=== PATIENT | female | born 1955 | race Caucasian/White ===

== ENCOUNTER 2019-07-10 12:26 | Inpatient (IN) ==
[2019-07-10] MEDS ORDERED: MORPHINE SULFATE 4 MG/ML SYRG IV ONE ×2 (12:32→14:21)
[2019-07-10] MEDS ORDERED: ONDANSETRON HCL/PF 2 MG/ML VIAL ONE (12:47)
[2019-07-10] MEDS ORDERED: ONDANSETRON HCL/PF 2 MG/ML VIAL IV ONE (12:53)
[2019-07-10] MEDS ORDERED: LORazepam 2 MG/ML DISP.SYRIN IV ONE ×2 (13:34→14:21)
[2019-07-10 13:55] LABS: Hematocrit 44.2 % (37.0-47.0); Hemoglobin 14.2 gm/dL (12.5-16.0); Mean Cell Volume 81.4 fl (78-100); Mean Corpuscular Hemoglobin 26.2 pg (27-31); Mean Corpuscular Hgb Conc 32.1 g/dl (32-36); Mean Platelet Volume 10.2 fl (8-12.5); Neutrophil # 13.8 K/mm3 (1.3-6.0); Neutrophil % 87.1 % (42-75.0); Platelet Count 264 K/mm3 (150-450); Red Blood Count 5.43 M/mm3 (4.2-5.4); Red Cell Distribution Width 14.1 % (11.5-14.0); White Blood Count 15.9 K/mm3 (4.0-10.5)
[2019-07-10 14:09] LABS: Urine Bilirubin Negative (NEGATIVE); Urine Blood Negative /ul (NEGATIVE); Urine Ketone 5 mg/dL (NEGATIVE); Urine Nitrite Negative (NEGATIVE); Urine Protein Negative (NEGATIVE); Urine Specific Gravity <=1.005 SP.GR. (1.005-1.010); Urine Urobilinogen Normal (NORMAL); Urine pH 5.5 pH (5.0-7.0)
[2019-07-10 14:10] LABS: Albumin * 3.8 gm/dl (3.4-5.0); Anion Gap 12.3 mmol/L (6.8-13.8); BUN/Creatinine Ratio 14.5 (9.0-21.6); Bilirubin, Total 0.4 mg/dL (0.0-1.1); Ca. Corrected For Albumin 8.9 mg/dL (8.4-10.2); Calcium * 9.1 mg/dL (7.9-10.9); Carbon Dioxide 29.3 mmol/L (24-32.6); Potassium 3.6 mmol/L (3.4-4.6); Total Protein 7.9 gm/dL (6.2-8.2)
--- NOTE | 2019-07-10 14:12 | ERNOTE ---
Lower Extremity HPI - Narrative Date of Service: 07/10/19 - General Lower Extremities Pain: hip: left Time Seen by Provider: 07/10/19 12:27 Source: patient Exam Limitations: no limitations - Immun/Allergies/Home Medications Immunizations: IMMUNIZATION HX Immunizations Up to Date No History of Influenza Vaccine Yes Hx Pneumococcal Vaccination No Allergies/Adverse Reactions: Allergies Allergy/AdvReac Type Severity Reaction Status Date / Time No Known Allergies Allergy Verified 07/10/19 12:51 Home Medications: HOME MEDICATIONS Calcium Carb/Vitamin D3/Vit K1 [Calcium + D Soft Chewable Tab] 1 tab PO BID 03/26/14 [Last Taken Unknown] Multivitamins [Multivitamin Dat] 1 cap PO DAILY 03/26/14 [Last Taken Unknown] [place]-3 Fatty Acids/Fish Oil [Fish Oil 1,000 mg Capsule] 3 tab PO DAILY 03/26/14 [Last Taken Unknown] amlodipine 5 mg tablet See Rx Instructions .ROUTE .COMPLEX #90 tablet 01/23/19 [Last Taken Unknown] atorvastatin 20 mg tablet See Rx Instructions .ROUTE .COMPLEX #90 tablet 01/23/19 [Last Taken Unknown] hydrochlorothiazide 25 mg tablet See Rx Instructions .ROUTE .COMPLEX #90 tablet 01/23/19 [Last Taken Unknown] omeprazole 20 mg capsule,delayed release See Rx Instructions .ROUTE .COMPLEX #90 capsule 01/23/19 [Last Taken Unknown] sertraline 100 mg tablet 100 mg PO DAILY #30 tab 01/25/19 [Last Taken Unknown] levothyroxine 50 mcg tablet 50 mcg PO DAILY #30 tab 04/20/19 [Last Taken Unknown] metformin 500 mg tablet,extended release 24 hr 500 mg PO BID #60 tab 04/20/19 [Last Taken Unknown] - History of Present Illness Narrative: Patient presents to the ED via EMS for left hip pain. Patient had thrown laundry downstairs then slipped on water spilled on [facility] floor by her dog. This was on linoleum. She hit her head on the table and had immediate severe pain left hip. She was unable to get up and EMS called. Denies neck pain, no acute N/T/W. Pain severe with any kind of movement, Occurred: just prior to arrival Location of Incident: home Method of Injury: Reports: fell, direct blow Reason for Fall: Reports: slipped Loss of Consciousness: Reports: no loss of consciousness Modifying Factors - (Improves): Reports: rest Modifying Factors - (Worsens): Reports: movement Associated Symptoms: Denies: headache, weakness, bowel/bladder problems Subsequent Symptoms: Denies: sensory loss, numbness, motor loss Prior Treament: Denies: recently seen, similar symptoms before Review of Systems - Review of Systems Constitutional: Absent: fever EYE: Present: no symptoms reported ENT: Present: no symptoms reported Respiratory: Absent: shortness of breath Cardiology: Absent: chest pain Gastrointestinal/Abdominal: Absent: abdominal pain Genitourinary: Absent: dysuria All Other Systems: All systems neg except as marked Medical History (Last Reviewed 07/10/19 @ 14:08 by Bill Logan MD) Osteopenia (Chronic) Onset Date: Unknown Hypertension (Chronic) Onset Date: Unknown Hyperlipidemia (Chronic) Onset Date: Unknown Depression (Chronic) Onset Date: Unknown Anxiety disorder (Chronic) Onset Date: Unknown Surgical History: Surgical History (Last Reviewed 07/10/19 @ 14:08 by Bill Logan MD) History of wisdom tooth extraction Onset Date: ~2004 History of colonoscopy Onset Date: 07/13/11 Bagan=tortous colon. followed with barium enema. Negative recheck 5-10 yrs History of esophagogastroduodenoscopy (EGD) Onset Date: 04/02/14 History of reduction mammoplasty Onset Date: ~2011 History of shoulder surgery Onset Date: 04/18/16 Family History: Family History (Last Reviewed 07/10/19 @ 14:08 by Bill Logan MD) Father , age 79 Dementia CHF (congestive heart failure) Cancer lung Mother Hypertension Social History: (Last Reviewed 07/10/19 @ 14:08 by Bill Logan MD) Social History: Marital status: lives independently: Yes number of children: 2 Service: No Tobacco: Smoking Status: Former smoker Alcohol: alcohol intake: current alcohol intake frequency: a few times a month Substance Use: substance use type: does not use Dietary Habits: caffeine: Yes Physical Exam - Physical Exam General Appearance: Present: alert, no apparent distress, other - seveer pain with any movement left hip Head Exam: Present: normal inspection, no evidence of injury Eye Exam: Normal inspection: bilateral, PERRL: bilateral Ears, Nose, Throat: Present: normal ENT inspection Neck: Present: normal inspection, other - there is no C-spine tenderness , no neck pain, no suggestion of fracture Respiratory: Present: no respiratory distress, normal breath sounds, no accessory muscle use, lungs clear Cardiovascular/Chest: Present: regular rate, rhythm, normal peripheral pulses Gastrointestinal/Abdominal: Present: normal bowel sounds, nontender, soft Back Exam: Present: no vertebral tenderness Extremity Exam: Present: other - clinical left hip fracture Neurological Exam: Present: alert, no motor/sensory deficits, other - pain limits exam, no acute neuro deficits noted however Skin Exam: Present: normal color, warm/dry, other - no evidence of open fracture nopted Progress - Results and Orders Patient's Lab Results:: I have reviewed the patient's lab results. - Vital Signs Patient's Vital Signs:: I have reviewed the patient's vital signs. Vital Signs: Vital Signs 07/10/19 12:26 Temperature 36 C Pulse Rate 77 Respiratory Rate 20 Blood Pressure 164/68 H O2 Sat by Pulse Oximetry 97 - EKG EKG #1 EKG: NSR EKG read: Interp. by me EKG Comments: NSR rate 85. non-speciic ST/T wave changes, no STEMI noted. - X-Ray X-Ray #1 X-Ray: chest Interpretation: Interp. by me X-ray Comments: I reviewed official radiology report X-Ray #2 X-Ray: femur Interpretation: Interp. by me X-ray Comments: I reviewed images and official radiology report X-Ray #3 X-Ray: hip Interpretation: Interp. by me X-ray Comments: I reviewed images as well as offical radiology report - CT/Ultrasound CT/Ultrasound Narrative: I reviewed official radioology report for HCT - Progress/Reassessment Chief Complaint: Hip Pain/Injury Progress Note-Subjective: 07/10/19 14:[address] Bates to admit. Dr Suri Escobedo and consulted. Patient understands. Departure Clinical Impression: Fall, Hip fracture, Head injury - Departure Disposition: Still a patient Condition: Fair Referrals: Betty Gentile MD [Primary Care Provider] -
[2019-07-10 14:20] LABS: Urine Appearance Clear (CLEAR); Urine Bacteria 1+; Urine Color Pale Yellow; Urine RBC None Seen /hpf (0-5); Urine WBC 0-5 /hpf (0-5)
--- NOTE | 2019-07-10 15:45 | HP ---
Chief Complaint - Chief Complaint Date of Service: 07/10/19 Time of Service: 15:37 Chief Complaint: Left hip fractue History of Present Illness: 63 y/o F with PMHX of Osteopenia, NIDDM Type II, Essential Hypertension, Hyperlipidemia, Hypothyroidism, Major Depressive Disorder and Generalized Anxiety Disorder presents to the ER after a fall at home at 09:30 am. Patient was carrying laundry and slipped on some water that had spilled onto the floor landing on her left hip and back. Patient did not lose conciousness. Patient dragged herself to the kitchen and was able to reach her laptop and posted on FB for help because she could not reach her phone. On arrival to ER, BP is elevated most likely secondary to pain, remaining VSS. Labs reviewed and significant for Leukocytosis most likely reactive, hyperglycemia, and glucosuria. Cardiac panel unremarkable. EKG and CXR largely unremarkable. CT head ruled out acute bleed. X-Ray of left Femur and Hip/Pelvis demonstrated impacted and angulated left tronchanteric hip fracture. Received Mo rphine and Lorazepam in the ER. On arrival to the floor patient is complaining of left hip pain, radiating down her leg, described as sharp and stabbing, rated 10/10 associated with muscle spasms. No sensory deficits. Discussed management of correa traction versus PO muscle relaxant for muscle spasms, pain control with morphine, NPO at midnight and start fluids at midnight. Discussed the importance of controlling her glucose levels post-op and advised she will be on insulin according to sliding scale. Patient voiced understanding. Medical History (Last Reviewed 07/10/19 @ 14:08 by Bill Logan MD) Osteopenia (Chronic) Onset Date: Unknown Hypertension (Chronic) Onset Date: Unknown Hyperlipidemia (Chronic) Onset Date: Unknown Depression (Chronic) Onset Date: Unknown Anxiety disorder (Chronic) Onset Date: Unknown Surgical History: Surgical History (Last Reviewed 07/10/19 @ 14:08 by Bill Logan MD) History of wisdom tooth extraction Onset Date: ~2004 History of colonoscopy Onset Date: 07/13/11 Bagan=tortous colon. followed with barium enema. Negative recheck 5-10 yrs History of esophagogastroduodenoscopy (EGD) Onset Date: 04/02/14 History of reduction mammoplasty Onset Date: ~2011 History of shoulder surgery Onset Date: 04/18/16 Family History: Family History (Last Reviewed 07/10/19 @ 14:08 by Bill Logan MD) Father , age 79 Dementia CHF (congestive heart failure) Cancer lung Mother Hypertension Social History: (Last Reviewed 07/10/19 @ 14:08 by Bill Logan MD) Social History: Marital status: lives independently: Yes number of children: 2 Service: No Tobacco: Smoking Status: Former smoker Alcohol: alcohol intake: current alcohol intake frequency: a few times a month Substance Use: substance use type: does not use Dietary Habits: caffeine: Yes Review Of Systems (GEN) - Review of Systems Generalized/Overall Review: Present: Weakness - left le Respiratory: Absent: Cough, Shortness of Breath, Orthopnea Cardiac: Absent: Chest Pain, Edema, Palpitations Abdominal: Present: Nausea. Absent: Vomiting, Abdominal Pain Genitourinary: Absent: Burning, Itching, Urgency Musculoskeletal: Present: Joint Pain - left hip. Absent: Back Pain, Joint Swelling, Muscle Pain Neurological: Present: Anxiety, Weakness - left leg Skin: Absent: Dryness, Lesions, Bruising Immunizations: IMMUNIZATION HX Immunizations Up to Date No History of Influenza Vaccine Yes Hx Pneumococcal Vaccination No Allergies/Adverse Reactions: Allergies Allergy/AdvReac Type Severity Reaction Status Date / Time No Known Allergies Allergy Verified 07/10/19 12:51 Home Medications: HOME MEDICATIONS Calcium Carb/Vitamin D3/Vit K1 [Calcium + D Soft Chewable Tab] 1 tab PO BID 03/26/14 [Last Taken Unknown] Multivitamins [Multivitamin Dat] 1 cap PO DAILY 03/26/14 [Last Taken Unknown] [place]-3 Fatty Acids/Fish Oil [Fish Oil 1,000 mg Capsule] 3 tab PO DAILY 03/26/14 [Last Taken Unknown] amlodipine 5 mg tablet See Rx Instructions .ROUTE .COMPLEX #90 tablet 01/23/19 [Last Taken Unknown] atorvastatin 20 mg tablet See Rx Instructions .ROUTE .COMPLEX #90 tablet 01/23/19 [Last Taken Unknown] hydrochlorothiazide 25 mg tablet See Rx Instructions .ROUTE .COMPLEX #90 tablet 01/23/19 [Last Taken Unknown] omeprazole 20 mg capsule,delayed release See Rx Instructions .ROUTE .COMPLEX #90 capsule 01/23/19 [Last Taken Unknown] sertraline 100 mg tablet 100 mg PO DAILY #30 tab 01/25/19 [Last Taken Unknown] levothyroxine 50 mcg tablet 50 mcg PO DAILY #30 tab 04/20/19 [Last Taken Unknown] metformin 500 mg tablet,extended release 24 hr 500 mg PO BID #60 tab 04/20/19 [Last Taken Unknown] Exam - Exam Vital Signs: Vital Signs - Last Taken Temp 36 C 07/10/19 12:26 Pulse 81 07/10/19 14:53 Resp 13 07/10/19 14:53 BP 116/74 07/10/19 14:53 Pulse Ox 95 07/10/19 14:53 Constitutional: Present: Alert, Oriented x3, Cooperative, Acute distress ENT Exam: Present: hearing grossly normal Eye Exam: bilateral eye: normal inspection, EOMI Neck: Present: non-tender, full range of motion, supple, normal inspection Respiratory: Present: chest non-tender, lungs clear, normal breath sounds Cardiovascular/Chest: Present: normal peripheral pulses, regular rate, rhythm, no chest tenderness, no edema, no gallop, no JVD, no murmur Peripheral Pulses: dorsalis-pedis (R): 2+, dorsalis-pedis (L): 2+ Abdomen: Present: Normal bowel sounds, soft, nontender Extremity: Present: no pedal edema, no calf tenderness, leg cramps - left hip, leg pain - left hip. Absent: pedal edema, slow capillary refill Skin Exam: Present: normal color, warm/dry Neurologic: Present: alert, oriented x 3, motor weakness - left leg. Absent: sensory deficit Appearance: Present: appropriate appearance Eye contact: Present: cooperative Thoughts: Present: normal mood /affect Diagnostic Studies: Abnormal Lab Results 07/10/19 07/10/19 07/10/19 Range/Units 13:49 13:49 14:05 WBC 15.9 H (4.0-10.5) K/mm3 RBC 5.43 H (4.2-5.4) M/mm3 MCH 26.2 L (27-31) pg RDW 14.1 H (11.5-14.0) % Immature Gran % (Auto) 0.60 H (0.001-0.429) % Immature Gran # (Auto) 0.10 H (0.000-0.0310) K/mm3 Neutrophils % 87.1 H (42-75.0) % Lymphocytes % 7.9 L (20-51) % Neutrophils # 13.8 H (1.3-6.0) K/mm3 Lymphocytes # 1.26 L (1.5-3.5) k/mm3 Random Glucose 413 H (70-110) mg/dL Urine Glucose (UA) >=1000 H (NEGATIVE) mg/dL Urine Bacteria 1+ H (NONE) Laboratory Results WBC 15.9 K/mm3 (4.0-10.5) H 07/10/19 13:49 RBC 5.43 M/mm3 (4.2-5.4) H 07/10/19 13:49 Hgb 14.2 gm/dL (12.5-16.0) 07/10/19 13:49 Hct 44.2 % (37.0-47.0) 07/10/19 13:49 MCV 81.4 fl (78-100) 07/10/19 13:49 MCH 26.2 pg (27-31) L 07/10/19 13:49 MCHC 32.1 g/dl (32-36) 07/10/19 13:49 RDW 14.1 % (11.5-14.0) H 07/10/19 13:49 Plt Count 264 K/mm3 (150-450) 07/10/19 13:49 MPV 10.2 fl (8-12.5) 07/10/19 13:49 Immature Gran % (Auto) 0.60 % (0.001-0.429) H 07/10/19 13:49 Immature Gran # (Auto) 0.10 K/mm3 (0.000-0.0310) H 07/10/19 13:49 Neutrophils % 87.1 % (42-75.0) H 07/10/19 13:49 Lymphocytes % 7.9 % (20-51) L 07/10/19 13:49 Monocytes % 4.0 % (0.0-9) 07/10/19 13:49 Eosinophils % 0.1 % (0.0-3.0) 07/10/19 13:49 Basophils % 0.3 % (0.0-1.0) 07/10/19 13:49 Nucleated RBC % 0.0 k/mm3 (0-1) 07/10/19 13:49 Neutrophils # 13.8 K/mm3 (1.3-6.0) H 07/10/19 13:49 Lymphocytes # 1.26 k/mm3 (1.5-3.5) L 07/10/19 13:49 Monocytes # 0.6 k/mm3 (0.0-1.0) 07/10/19 13:49 Eosinophils # 0.0 k/mm3 (0.0-0.7) 07/10/19 13:49 Absolute Basophils 0.0 k/mm3 (0.0-0.1) 07/10/19 13:49 Sodium 135 mmol/L (132-142) 07/10/19 13:49 Plasma Sodium 140 mmol/L (130-142) 07/10/19 13:49 Potassium 3.6 mmol/L (3.4-4.6) 07/10/19 13:49 Chloride 97 mmol/L (97-106) 07/10/19 13:49 Carbon Dioxide 29.3 mmol/L (24-32.6) 07/10/19 13:49 Anion Gap 12.3 mmol/L (6.8-13.8) 07/10/19 13:49 BUN 10 mg/dL (3-23) 07/10/19 13:49 Creatinine 0.69 mg/dL (0.4-1.4) 07/10/19 13:49 Est GFR (Non-Af Amer) 91 mL/min (60-130) 07/10/19 13:49 BUN/Creatinine Ratio 14.5 (9.0-21.6) 07/10/19 13:49 Random Glucose 413 mg/dL (70-110) H 07/10/19 13:49 Calcium 9.1 mg/dL (7.9-10.9) 07/10/19 13:49 Calcium Adj for Albumin 8.9 mg/dL (8.4-10.2) 07/10/19 13:49 Total Bilirubin 0.4 mg/dL (0.0-1.1) 07/10/19 13:49 AST 43 U/L (0-48) 07/10/19 13:49 ALT 58 U/L (19-67) 07/10/19 13:49 Alkaline Phosphatase 109 U/L (50-170) 07/10/19 13:49 Troponin I Less than 0.017 ng/mL (0.00-0.10) 07/10/19 13:45 Total Protein 7.9 gm/dL (6.2-8.2) 07/10/19 13:49 Albumin 3.8 gm/dl (3.4-5.0) 07/10/19 13:49 Urine Color Pale yellow 07/10/19 14:05 Urine Appearance Clear (CLEAR) 07/10/19 14:05 Urine pH 5.5 pH (5.0-7.0) 07/10/19 14:05 Ur Specific [place] <=1.005 SP.GR. (1.005-1.010) 07/10/19 14:05 Urine Protein Negative mg/dL (NEGATIVE) 07/10/19 14:05 Urine Glucose (UA) >=1000 mg/dL (NEGATIVE) H 07/10/19 14:05 Urine Ketones 5 mg/dL (NEGATIVE) 07/10/19 14:05 Urine Blood Negative /ul (NEGATIVE) 07/10/19 14:05 Urine Nitrate Negative (NEGATIVE) 07/10/19 14:05 Urine Bilirubin Negative mg/dl (NEGATIVE) 07/10/19 14:05 Urine Urobilinogen Normal EU/dl (NORMAL) 07/10/19 14:05 Ur Leukocyte Esterase Negative /ul (NEGATIVE) 07/10/19 14:05 Urine RBC None seen /hpf (0-5) 07/10/19 14:05 Urine WBC 0-5 /hpf (0-5) 07/10/19 14:05 Ur Epithelial Cells 0-5 /hpf (0-5) 07/10/19 14:05 Urine Bacteria 1+ (NONE) H 07/10/19 14:05 Urine Culture Comments No culture indicated 07/10/19 14:05 Assessment/Plan - Narrative Narrative: Assessment/Plan 63 year old Female admitted for Left Hip Fracture Left Hip Fracture * Dr. Jay consulted * Morphine 2 mg q8h prn * Correa traction for muscle spasm * NPO after midnight * mIVFS @ 125mL/hr starting at midnight * Pre-op labs reviewed and largely unremarkable HTN * Elevated most likely due to pain * Continue home medications * Will continue to monitor MDD & NATIVIDAD * Ativan 0.5 mg IV q8h prn, alternate with morphine every 4 hours, do not administer together * Continue Setraline Hyperglycemia in the setting of NIDDM Type II * Insulin moderate dose sliding scale * Monitor closely post-op for proper healing of wound Hypothyroidism * Continue levothyroxine Hyperlipidemia * Continue atorvastatin FEN: Consistent and KRZYSZTOF diet. NPO after midnight and start mIVFs at 125 ml/hr DVT PPX: SCD's CODE STATUS: FULL CODE Disposition: - Patient is stable and cleared for surgery - Will follow up post-op for ortho and PT recommendations - Resume lovenox post-op - Transition to PO pain medications within 24 hours - Consider discontinuing ativan post-op - Tight glycemic control post-op - Assessment/Plan (1) Closed left hip fracture Problem: Acute (2) Muscle spasm Problem: Acute (3) Diabetes mellitus Problem: Acute (4) Hypertension Problem: Chronic (5) Hyperlipidemia Problem: Chronic (6) Depression Problem: Chronic (7) Anxiety disorder Problem: Chronic
--- NOTE | 2019-07-10 15:54 | CONS ---
[facility] - General Date of Service: 07/10/19 Narrative: Mrs. Gonzalez is a 63-year-old female who slipped and fell at home today on a wet patch resulting in an injury to her left hip as well as hitting her head. She was brought to the emergency department due to inability to weight-bear. At the time she is found to have a left displaced intertrochanteric femur fracture. The remaining work-up was negative. She reports left hip pain and. She is a community ambulator. She lives independently. She denies any prior hip trauma. She works as a teacher. She denies any neurologic symptoms Source: patient Exam Limitations: no limitations - History of Present Illness Timing/Duration: 4-6 hours Modifying Factors - (Worsens): Reports: movement Modifying Factors - (Improves): Reports: immobilization Associated Symptoms: denies symptoms Allergies/Adverse Reactions: Allergies No Known Allergies Allergy (Verified 07/10/19 12:51) Home Medications: Home Medications Medication Instructions Recorded Last Taken Calcium Carb/Vitamin D3/Vit K1 1 tab PO DAILY 03/26/14 Unknown [Calcium + D Soft Chewable Tab] Multivitamins [Multivitamin Dat] 1 cap PO DAILY 03/26/14 Unknown sertraline 100 mg tablet 100 mg PO DAILY #30 tab 01/25/19 Unknown levothyroxine 50 mcg tablet 50 mcg PO DAILY #30 tab 04/20/19 Unknown metformin 500 mg tablet,extended 500 mg PO BID #60 tab 04/20/19 Unknown release 24 hr Amlodipine Besylate 5 mg PO DAILY 07/10/19 07/10/19 Atorvastatin Calcium 20 mg PO DAILY 07/10/19 Unknown Hydrochlorothiazide [Hydrodiuril] 25 mg PO DAILY 07/10/19 07/10/19 Lactobacillus Combination No.4 1 ea PO DAILY 07/10/19 Unknown [Probiotic] Melatonin/Pyridoxine HCl (B6) 1 ea PO HS PRN 07/10/19 Unknown [Melatonin 5 mg Tablet] Omeprazole 20 mg PO DAILY 07/10/19 07/10/19 Vinegar Gummy 1 tab PO DAILY 07/10/19 Unknown Procedures Colonoscopy (07/13/11) Other endoscopy of small intestine (04/02/14) Review of Systems - Review of Systems Narrative: Negative except for above Physical Examination - Exam Narrative: Left lower extremity: Palpable dorsalis pedis pulse, sensation intact light touch, able to flex and extend her toes and ankle. No ecchymosis, lacerations or abrasions about the hip, thigh is soft, Vital Signs: Vital Signs - Last Taken Temp 36 C 07/10/19 12:26 Pulse 81 07/10/19 14:53 Resp 13 07/10/19 14:53 BP 116/74 07/10/19 14:53 Pulse Ox 95 07/10/19 14:53 O2 Oxygen Delivery Method Nasal Cannula Constitutional: Present: Alert, Oriented x3 - Results and Findings: Narrative: AP pelvis 2 views left hip: Displaced left intertrochanteric femur fracture, no other acute osseous pathology Lab/Microbiology results last 24 hrs: Abnormal/Pending Laboratory Last 24 HRS 07/10/19 07/10/19 07/10/19 14:05 13:49 13:49 WBC 15.9 H RBC 5.43 H MCH 26.2 L RDW 14.1 H Immature Gran % (Auto) 0.60 H Immature Gran # (Auto) 0.10 H Neutrophils % 87.1 H Lymphocytes % 7.9 L Neutrophils # 13.8 H Lymphocytes # 1.26 L Random Glucose 413 H Urine Glucose (UA) >=1000 H Urine Bacteria 1+ H - Assessments/Findings (1) Closed intertrochanteric fracture of left femur Diagnosis(s): Plan for IM fixation tomorrow. NPO after MN. Rhododendron traction for pain relief as needed. Ice to hip, SCDs, consent will be obtained. IV ancef. Will need 6 weeks DVT prophylaxis post-op. Problem: Acute Qualifiers: Encounter type: initial encounter Fracture alignment: displaced Qualified Code(s): S72.142A - Displaced intertrochanteric fracture of left femur, initial encounter for closed fracture
[2019-07-10] MEDS ORDERED: LORazepam 2 MG/ML DISP.SYRIN IV SCH (16:00)
[2019-07-10] MEDS: MORPHINE SULFATE 2 MG/ML DISP.SYRIN IV PRN ×2 (16:14→23:11)
[2019-07-10] MEDS ORDERED: ceFAZolin SODIUM/DEXTROSE,ISO 2 GM/50 ML BAG IV ONE (16:15)
[2019-07-10] MEDS: CYCLOBENZAPRINE HCL 10 MG TABLET PO PRN (16:56)
[2019-07-10] MEDS: INSULIN LISPRO 100 UNITS/ML VIAL SC SCH ×2 (17:25→20:49)
[2019-07-10] MEDS: CALCIUM CARBONATE/VITAMIN D3 1 TAB TABLET PO SCH (20:39)
[2019-07-10] MEDS: ROSUVASTATIN CALCIUM 10 MG TABLET PO SCH (20:40)
[2019-07-10] MEDS: LORazepam 2 MG/ML DISP.SYRIN IV SCH (20:52)
[2019-07-10] MEDS: amLODIPine BESYLATE 10 MG TABLET PO SCH (20:57)
[2019-07-11] MEDS: NORMAL SALINE 1,000 ML IV ONE ×2 (00:08→07:04)
[2019-07-11] MEDS: LORazepam 2 MG/ML DISP.SYRIN IV SCH ×2 (04:02→11:38)
[2019-07-11] MEDS: CYCLOBENZAPRINE HCL 10 MG TABLET PO PRN (04:04)
[2019-07-11 05:50] LABS: Hematocrit 37.3 % (37.0-47.0); Mean Cell Volume 82.2 fl (78-100); Mean Corpuscular Hemoglobin 26.4 pg (27-31); Mean Corpuscular Hgb Conc 32.2 g/dl (32-36); Mean Platelet Volume 10.1 fl (8-12.5); Neutrophil # 8.6 K/mm3 (1.3-6.0); Neutrophil % 77.1 % (42-75.0); Platelet Count 213 K/mm3 (150-450); Red Blood Count 4.54 M/mm3 (4.2-5.4); Red Cell Distribution Width 14.6 % (11.5-14.0); White Blood Count 11.1 K/mm3 (4.0-10.5)
[2019-07-11 05:59] LABS: Albumin * 3.3 gm/dl (3.4-5.0); Anion Gap 8.8 mmol/L (6.8-13.8); BUN/Creatinine Ratio 17.5 (9.0-21.6); Bilirubin, Total 0.4 mg/dL (0.0-1.1); Calcium * 8.8 mg/dL (7.9-10.9); Potassium 3.8 mmol/L (3.4-4.6); Total Protein 6.9 gm/dL (6.2-8.2)
[2019-07-11] MEDS: PANTOPRAZOLE SODIUM 20 MG TABLET.DR PO SCH (06:59)
[2019-07-11] MEDS: LEVOTHYROXINE SODIUM 50 MCG TABLET PO SCH (06:59)
[2019-07-11] MEDS ORDERED: ceFAZolin SODIUM 1 GM VIAL IV PRN (07:00)
[2019-07-11] MEDS: MORPHINE SULFATE 2 MG/ML DISP.SYRIN IV PRN ×2 (07:01→14:38)
[2019-07-11] MEDS: INSULIN LISPRO 100 UNITS/ML VIAL SC SCH ×4 (07:08→21:39)
[2019-07-11] MEDS: NORMAL SALINE 1,000 ML IV PRN ×2 (08:09→14:07)
--- NOTE | 2019-07-11 08:36 | PN ---
Subjective - Date and Time Seen Date: 07/11/19 Time: 08:36 Subjective Narrative: No acute events overnight. Pain well controlled with morphine. Correa traction helping with muscle spasms. No CP. No SOB. Currently NPO on mIVFS. Discussed management post-op and patient voiced understanding. Objective - Review of Systems Generalized/Overall Review: Reports: Weakness - left leg. Denies: Chills, Fever Respiratory: Denies: Shortness of Breath, Orthopnea, Stridor, Wheezing Cardiac: Denies: Chest Pain, Edema, Palpitations Abdominal: Denies: Nausea, Vomiting Genitourinary Symptoms: Denies: Burning, Itching, Urgency, Frequency Neurological: Denies: Numbness, Parasthesia Skin: Denies: Dryness - Vitals Vitals: Last Vital Signs Temp 37.0 C 07/11/19 07:17 Pulse 87 07/11/19 07:17 Resp 20 07/11/19 07:17 BP 162/77 H 07/11/19 07:17 Pulse Ox 92 L 07/11/19 07:17 - Abnormal Lab Findings Abnormal Lab Findings: Abnormal Lab Results 07/10/19 07/10/19 07/10/19 Range/Units 13:49 13:49 14:05 WBC 15.9 H (4.0-10.5) K/mm3 RBC 5.43 H (4.2-5.4) M/mm3 Hgb (12.5-16.0) gm/dL MCH 26.2 L (27-31) pg RDW 14.1 H (11.5-14.0) % Immature Gran % (Auto) 0.60 H (0.001-0.429) % Immature Gran # (Auto) 0.10 H (0.000-0.0310) K/mm3 Neutrophils % 87.1 H (42-75.0) % Lymphocytes % 7.9 L (20-51) % Neutrophils # 13.8 H (1.3-6.0) K/mm3 Lymphocytes # 1.26 L (1.5-3.5) k/mm3 Random Glucose 413 H (70-110) mg/dL Albumin (3.4-5.0) gm/dl Urine Glucose (UA) >=1000 H (NEGATIVE) mg/dL Urine Bacteria 1+ H (NONE) 07/11/19 07/11/19 Range/Units 05:15 05:15 WBC 11.1 H D (4.0-10.5) K/mm3 RBC (4.2-5.4) M/mm3 Hgb 12.0 L (12.5-16.0) gm/dL MCH 26.4 L (27-31) pg RDW 14.6 H (11.5-14.0) % Immature Gran % (Auto) 0.50 H (0.001-0.429) % Immature Gran # (Auto) 0.05 H (0.000-0.0310) K/mm3 Neutrophils % 77.1 H (42-75.0) % Lymphocytes % 15.3 L (20-51) % Neutrophils # 8.6 H (1.3-6.0) K/mm3 Lymphocytes # (1.5-3.5) k/mm3 Random Glucose 290 H (70-110) mg/dL Albumin 3.3 L (3.4-5.0) gm/dl Urine Glucose (UA) (NEGATIVE) mg/dL Urine Bacteria (NONE) - EKG/Xray Findings EKG: NSR EKG read: Reviewed by me XRAY: chest Interpretation: Reviewed by me - no acute cardiopulmonary process - Exam Constitutional: Present: Alert, Oriented x3, Cooperative ENT Exam: Present: hearing grossly normal Neck: Present: non-tender, full range of motion, supple, normal inspection Respiratory: Present: chest non-tender, lungs clear, normal breath sounds, no respiratory distress, no accessory muscle use Cardiovascular/Chest: Present: normal peripheral pulses, regular rate, rhythm, no chest tenderness, no edema, no gallop, no JVD, no murmur Abdomen: Present: Normal bowel sounds, soft, nontender, nondistended Extremity: Present: non-tender, normal inspection, no pedal edema, no calf tenderness Skin Exam: Present: normal color, warm/dry Neurologic: Present: alert, oriented x 3 Appearance: Present: appropriate appearance, appropriate insight, no memory impairment Eye contact: Present: cooperative, good eye contact, normal speech Thoughts: Present: normal thought pattern Cauti Physician Documentation - Urinary Catheter Management 2-way Urethral Urethral Indwelling: Yes Reason for Continuing Indwelling Catheter: Surgical Procedure Date of Insertion: 07/10/19 Time of Insertion: 14:05 Assessment/Plan Plan Narrative: Assessment/Plan 63 year old Female admitted for Left Hip Fracture Left Hip Fracture * Dr. Jay consulted * Morphine 2 mg q8h prn * Correa traction for muscle spasm * NPO since midnight * mIVFS @ 125mL/hr * Pre-op labs reviewed and largely unremarkable Leukocytosis * most likely reactive trending balaji * will monitor post-op HTN * Elevated most likely due to pain * Continue home medications * Will continue to monitor MDD & NATIVIDAD * Ativan 0.5 mg IV q8h prn, alternate with morphine every 4 hours, do not administer together * Continue Serraline Hyperglycemia in the setting of NIDDM Type II * Insulin moderate dose sliding scale * Monitor closely post-op for proper healing of wound Hypothyroidism * Continue levothyroxine Hyperlipidemia * Continue atorvastatin FEN: NPO after midnight and start mIVFs at 125 ml/hr. Post-op will resume diet of Consistent Carbs and KRZYSZTOF diet. DVT PPX: SCD's CODE STATUS: FULL CODE Disposition: - Patient is stable and cleared for surgery - Will follow up post-op for ortho and PT recommendations - Resume lovenox post-op - Transition to PO pain medications within 24 hours - Consider discontinuing ativan post-op - Tight glycemic control post-op - Problems/Diagnosis (1) Closed left hip fracture Problem: Acute Qualifiers: Encounter type: initial encounter Qualified Code(s): S72.002A - Fracture of unspecified part of neck of left femur, initial encounter for closed fracture (2) Leukocytosis Problem: Acute Qualifiers: Leukocytosis type: leukemoid reaction Qualified Code(s): D72.823 - Leukemoid reaction (3) Muscle spasm Problem: Acute (4) Diabetes mellitus Problem: Chronic Qualifiers: Diabetes mellitus type: type 2 Diabetes mellitus penitentiary insulin use: without penitentiary use Diabetes mellitus complication status: without complication Qualified Code(s): E11.9 - Type 2 diabetes mellitus without complications (5) Hypertension Problem: Chronic Qualifiers: Hypertension type: essential hypertension Qualified Code(s): I10 - Essential (primary) hypertension (6) Hyperlipidemia Problem: Chronic Qualifiers: Hyperlipidemia type: mixed hyperlipidemia Qualified Code(s): E78.2 - Mixed hyperlipidemia (7) Depression Problem: Chronic Qualifiers: Depression Type: major depressive disorder Major depression recurrence: recurrent Active/Remission status: remission status unspecified Qualified Code(s): F33.9 - Major depressive disorder, recurrent, unspecified (8) Anxiety disorder Problem: Chronic Qualifiers: Anxiety disorder type: generalized anxiety disorder Qualified Code(s): F41.1 - Generalized anxiety disorder
[2019-07-11] MEDS: SERTRALINE HCL 100 MG TABLET PO SCH (09:00)
--- NOTE | 2019-07-11 09:06 | ANES ---
Anesthesia Pre Procedure Eval Vitals/Labs: Last Vital Signs Temp 37.0 C 07/11/19 07:17 Pulse 87 07/11/19 07:17 Resp 20 07/11/19 07:17 BP 162/77 H 07/11/19 07:17 Pulse Ox 92 L 07/11/19 07:17 HOME MEDICATIONS Calcium Carb/Vitamin D3/Vit K1 [Calcium + D Soft Chewable Tab] 1 tab PO DAILY 03/26/14 [Last Taken Unknown] Multivitamins [Multivitamin Dat] 1 cap PO DAILY 03/26/14 [Last Taken Unknown] sertraline 100 mg tablet 100 mg PO DAILY #30 tab 01/25/19 [Last Taken Unknown] levothyroxine 50 mcg tablet 50 mcg PO DAILY #30 tab 04/20/19 [Last Taken Unknown] metformin 500 mg tablet,extended release 24 hr 500 mg PO BID #60 tab 04/20/19 [Last Taken Unknown] Amlodipine Besylate 5 mg PO DAILY 07/10/19 [Last Taken 07/10/19] Atorvastatin Calcium 20 mg PO DAILY 07/10/19 [Last Taken Unknown] Hydrochlorothiazide [Hydrodiuril] 25 mg PO DAILY 07/10/19 [Last Taken 07/10/19] Lactobacillus Combination No.4 [Probiotic] 1 ea PO DAILY 07/10/19 [Last Taken Unknown] Melatonin/Pyridoxine HCl (B6) [Melatonin 5 mg Tablet] 1 ea PO HS PRN 07/10/19 [Last Taken Unknown] Omeprazole 20 mg PO DAILY 07/10/19 [Last Taken 07/10/19] Vinegar Gummy 1 tab PO DAILY 07/10/19 [Last Taken Unknown] Allergies/Adverse Reactions: Allergies Allergy/AdvReac Type Severity Reaction Status Date / Time No Known Allergies Allergy Verified 07/10/19 12:51 - Planned Procedure Planned Procedure: Left Hip Fracture Medication List Reviewed:: Yes Allergies Verified: Yes Medical History (Last Reviewed 07/11/19 @ 09:01 by Gordo Lofton CRNA) Osteopenia (Chronic) Onset Date: Unknown Hypertension (Chronic) Onset Date: Unknown Hyperlipidemia (Chronic) Onset Date: Unknown Depression (Chronic) Onset Date: Unknown Anxiety disorder (Chronic) Onset Date: Unknown Surgical History (Last Reviewed 07/11/19 @ 09:01 by Gordo Lofton CRNA) History of wisdom tooth extraction Onset Date: ~2004 History of colonoscopy Onset Date: 07/13/11 Bagan=tortous colon. followed with barium enema. Negative recheck 5-10 yrs History of esophagogastroduodenoscopy (EGD) Onset Date: 04/02/14 History of reduction mammoplasty Onset Date: ~2011 History of shoulder surgery Onset Date: 04/18/16 Family History (Last Reviewed 07/11/19 @ 09:01 by Gordo Lofton CRNA) Father , age 79 Dementia CHF (congestive heart failure) Cancer lung Mother Hypertension - Airway/Neck/Teeth Denture Type: Perm crown/bridge Mallampatti Score: 3 Thyromental (T-M) distance: > 6 cm Mandibulo Hyoid distance: > 3 cm - Respiratory Respiratory Physical: lungs clear Smoking Status: Former smoker - quit 15 years ago Sleep Apnea currently treated: No Sleep Apnea by current assessment: Yes - by H&P Discussed Risks/Treatment of CHIQUITA: Yes - Cardiovascular Cardiac History: arrhythmia, hypertension, hyperlipidemia Tolerate Activity: Fair Heart Sounds: S1 & S2, Regular - Gastrointestinal NPO since: 2400 - Anesthesia Assessment and Plan ASA Class: PS, III Anesthesia Type Plan: Spinal
[2019-07-11] MEDS: CALCIUM CARBONATE/VITAMIN D3 1 TAB TABLET PO SCH ×2 (09:18→21:37)
[2019-07-11] MEDS ORDERED: ONDANSETRON HCL/PF 2 MG/ML VIAL ONE (11:10)
[2019-07-11] MEDS ORDERED: LIDOCAINE HCL 20 ML VIAL ONE (11:10)
[2019-07-11] MEDS ORDERED: fentaNYL CITRATE/PF 50 MCG/ML AMPUL ONE (11:10)
[2019-07-11] MEDS ORDERED: PROPOFOL VIAL IV ONE (11:11)
[2019-07-11] MEDS ORDERED: ceFAZolin SODIUM 1 GM VIAL ONE (12:13)
[2019-07-11] MEDS ORDERED: RINGER'S SOLUTION,LACTATED 1,000 ML IV PRN (12:34)
[2019-07-11] MEDS ORDERED: BUPIVACAINE HCL/PF 10 ML VIAL ONE (12:52)
[2019-07-11] MEDS ORDERED: BUPIVACAINE HCL 50 ML VIAL IJ ONE ×2 (12:53→13:18)
--- NOTE | 2019-07-11 12:54 | OR ---
Operative Report - Dictated Report Narrative: Date: 07/11/2019 Surgeon: Gaurav Mccord M.D. Pheresis Specialist: Kalyan Gomez PA-C (provided an essential set of skilled educated handset assisted with transfer, positioning, prepping, draping, placement of instruments, insertion of implants, irrigation, closure wounds, and placement of dressings all which could not be performed by the available surgical crew) Preoperative diagnosis: Left closed intertrochanteric femur fracture Postoperative diagnosis: Left closed intertrochanteric femur fracture Operations and procedures: 1. Closed reduction, cephalo-medullary fixation left intertrochanteric femur fracture 2. Intraoperative interpretation of radiographs Anesthesia: General Specimens: None Estimated blood loss: 100 Milliliters Retained implants: [employer] Trigen InterTAN 130 degree size 10 mm by 18 centimeter nail with 105 millimeter lag screw and 100 millimeter compression screw, with distal locking screw Complications: None Indications for procedure: Mrs. Gonzalez is a 63-year-old female who injured the left leg after ground-level fall at home. They were admitted to the hospital after being evaluated in the emergency department. Once the medical provider felt that they were stable for surgical treatment, the risks and benefits alternatives were discussed. The risks of , blood clots, bleeding, infection, nerve/tendon/blood vessel injury, malunion, nonunion, failure of implants, painful implants, arthrosis, and need for additional procedures were discussed. The extremity was marked and consent was obtained on the floor. Procedure: After marking the operative extremity on the floor, the patient was taken to the operating room. A timeout was performed. IV antibiotics consisting of Ancef were administered. An attempt was made at a spinal anesthetic however this was unsuccessful and a general anesthetic was induced by anesthesia, and the patient was then placed onto a fracture table with a well-padded perineal post. The nonoperative leg was placed in a well-padded traction boot in slight extension without any traction with an SCD on the leg. The operative leg was placed in a well-padded traction boot. Longitudinal traction, internal rotation, and flexion were utilized in order to reduce the fracture. Preliminary images were attained utilizing C-arm in both the AP and lateral views. This confirmed that we had obtained adequate visualization of the fracture as well as reduction. Next the hip was then prepped and draped in a standard sterile fashion. Next the guidewire was placed percutaneously proximal to the greater trochanter to priscila a starting point at the tip of the greater trochanter centered on the la teral view. This was passed down to the level below the lesser trochanter. A scalpel was utilized in order to dissect down to the greater trochanter in order to place the soft tissue protector down to bone. The entry drill was then placed down the proximal femur to the level of the lesser trochanter. The proper size nail was then selected and impacted into place. The outrigger was utilized in order to confirm the appropriate depth of the nail. Using the alignment device on the outrigger, an incision was made over the lateral femur. Sharp dissection was carried through the iliotibial band down to the proximal femur. The guidewire was placed into the femoral head in a center- center position on AP and lateral views. The tip-apex distance of less than 25 mm combined was obtained. Once we felt that we had placed a guidewire in the appropriate position, it was measured. Next the compression screw site was drilled through the lateral femoral cortex. This was then drilled down to the appropriate depth, again confirming that we are within the confines the bone. The derotational bar was then placed and the lag screw was drilled. The lag screw was then secured in place seating fully ensuring that we were within the confines of the bone. The compression screw was then inserted allowing for compression while releasing the traction on the leg. Using C-arm this was visualized to allow for compression across the fracture site. Once is felt that we had adequately stabilized the intertrochanteric fracture, the distal interlocking screw was placed in a dynamic position. It was confirmed to be the appropriate length and within the nail on both AP and lateral views. The nail was secured allowing for controlled compression and the outrigger was removed. The wounds were then thoroughly irrigated. Final images were obtained. The hip was placed through range of motion and showed no crepitance. The deep fascia was closed with 0 Vicryl, the subcutaneous tissue with 3-0 Vicryl, and the skin was closed with elmer. Sterile dressings of Xeroform, 4 x 4, and tape were applied. All sponge, sharp, and instrument counts were correct prior to closing the wounds. The patient was then awoken and transferred to the postanesthesia care unit in stable condition.
[2019-07-11] MEDS ORDERED: diphenhydrAMINE HCL 50 MG/ML VIAL IV PRN (12:55)
[2019-07-11] MEDS ORDERED: ZOLPIDEM TARTRATE 5 MG TABLET PO PRN (12:55)
[2019-07-11] MEDS ORDERED: MAGNESIUM HYDROXIDE 30 ML UDC PO PRN (12:55)
--- NOTE | 2019-07-11 13:13 | ANES ---
Post Anesthesia Discharge - Transfer of Care Transfer of Care handoff given to nurse: Yes - Discharge from PACU Discharge from PACU when meets criteria: Yes - Comfortable in PACU.
[2019-07-11] MEDS ORDERED: PYRIDOXINE HCL PO PRN (13:41)
[2019-07-11] MEDS ORDERED: MELATONIN PO PRN (13:41)
[2019-07-11] MEDS: ONDANSETRON HCL/PF 2 MG/ML VIAL IV PRN (14:01)
[2019-07-11] MEDS: ceFAZolin SODIUM 1 GM in DEXTROSE 5 % IN WATER 100 ML IV SCH ×4 (14:14→21:36)
[2019-07-11] MEDS: amLODIPine BESYLATE 10 MG TABLET PO SCH (14:34)
[2019-07-11] MEDS: HYDROCHLOROTHIAZIDE 25 MG TABLET PO SCH (14:34)
--- NOTE | 2019-07-11 15:38 | ANES ---
Post Anesthesia Assessment - Vital Signs Vitals: Last Vital Signs Temp 35.7 C L 07/11/19 13:45 Pulse 87 07/11/19 14:34 Resp 20 07/11/19 14:00 BP 167/82 H 07/11/19 14:34 Pulse Ox 95 07/11/19 14:00 Airway Patency: Normal - Mental Status Level Of Consciousness: Awake, Alert, Appropriate - Pain Level Pain Score: 0 - N/V Assessment Nausea/Vomiting Presence: None Dehydration:: No
--- NOTE | 2019-07-11 16:34 | PN ---
Progess Note - Interim Date: 07/11/19 Time: 16:32 Narrative: 07/11/19 16:32 Patient is doing well post-op. Complaining of pain but significantly improved. Discussed about transitioning to PO pain medications. Will d/c mIVFS and resume diet. Has SCD's, will resume lovenox for dvt ppx tomorrow AM, if ortho has not resumed it already.
[2019-07-11] MEDS: HYDROcodone/ACETAMINOPHEN 1 EACH TABLET PO PRN (16:47)
[2019-07-11] MEDS: ROSUVASTATIN CALCIUM 10 MG TABLET PO SCH (21:38)
[2019-07-11] MEDS: SENNOSIDES/DOCUSATE SODIUM 1 TAB TABLET PO SCH (21:39)
[2019-07-12] MEDS: ceFAZolin SODIUM 1 GM in DEXTROSE 5 % IN WATER 100 ML IV SCH ×2 (04:10)
[2019-07-12] MEDS: HYDROcodone/ACETAMINOPHEN 1 EACH TABLET PO PRN ×3 (04:15→19:49)
[2019-07-12 06:35] LABS: Hematocrit 33.7 % (37.0-47.0); Hemoglobin 10.7 gm/dL (12.5-16.0); Mean Corpuscular Hemoglobin 26.4 pg (27-31); Mean Corpuscular Hgb Conc 31.8 g/dl (32-36); Mean Platelet Volume 9.9 fl (8-12.5); Neutrophil # 8.5 K/mm3 (1.3-6.0); Neutrophil % 76.8 % (42-75.0); Platelet Count 200 K/mm3 (150-450); Red Blood Count 4.06 M/mm3 (4.2-5.4); Red Cell Distribution Width 14.4 % (11.5-14.0); White Blood Count 11.1 K/mm3 (4.0-10.5)
[2019-07-12 06:49] LABS: BUN/Creatinine Ratio 10.9 (9.0-21.6); Calcium * 8.9 mg/dL (7.9-10.9); Carbon Dioxide 33.6 mmol/L (24-32.6); Estimated Creat Clear 96.7; Potassium 3.6 mmol/L (3.4-4.6)
[2019-07-12] MEDS: LEVOTHYROXINE SODIUM 50 MCG TABLET PO SCH (06:55)
[2019-07-12] MEDS: INSULIN LISPRO 100 UNITS/ML VIAL SC SCH ×4 (06:56→20:02)
[2019-07-12] MEDS: PANTOPRAZOLE SODIUM 20 MG TABLET.DR PO SCH (06:56)
[2019-07-12] MEDS ORDERED: HYDROCHLOROTHIAZIDE 25 MG TABLET PO SCH (09:00)
[2019-07-12] MEDS ORDERED: NON-FORMULARY 1 DOSE DOSE (Omeprazole 20 MG) PO SCH (09:00)
[2019-07-12] MEDS ORDERED: amLODIPine BESYLATE 5 MG TABLET PO SCH (09:00)
[2019-07-12] MEDS ORDERED: ATORVASTATIN CALCIUM 20 MG PO SCH (09:00)
[2019-07-12] MEDS: CALCIUM CARBONATE/VITAMIN D3 1 TAB TABLET PO SCH ×2 (09:51→20:01)
[2019-07-12] MEDS: MULTIVITAMINS 1 CAP CAPSULE PO SCH (09:51)
[2019-07-12] MEDS: APIXABAN 2.5 MG TABLET PO SCH ×2 (09:52→20:01)
[2019-07-12] MEDS: SERTRALINE HCL 100 MG TABLET PO SCH (09:52)
[2019-07-12] MEDS: HYDROCHLOROTHIAZIDE 25 MG TABLET PO SCH (09:52)
[2019-07-12] MEDS: [UNRECOGNIZED DRUG - OTHER] PO SCH (09:55)
[2019-07-12] MEDS: amLODIPine BESYLATE 10 MG TABLET PO SCH (10:02)
[2019-07-12] MEDS ORDERED: SUCCINYLCHOLINE CHLORIDE 20 MG/ML VIAL ONE (11:13)
--- NOTE | 2019-07-12 11:27 | PN ---
Subjective - Date and Time Seen Date: 07/12/19 Time: 11:22 Subjective Narrative: Patient reports that she is feeling well. She states that she was able to get up and ambulate around the room today. Pain is adequately controlled. Overall she has no specific complaints at this time. Objective Objective Narrative: Bandages clean dry and intact. Neurovascular intact with plantar flexion dorsiflexion left lower extremity. Calf supple. Patient currently up in chair alert and oriented and comfortable. - Vitals Vitals: Last Vital Signs Temp 36.6 C 07/12/19 10:00 Pulse 79 07/12/19 10:02 Resp 16 07/12/19 10:00 BP 150/73 H 07/12/19 10:02 Pulse Ox 95 07/12/19 10:00 - Abnormal Lab Findings Abnormal Lab Findings: Abnormal Lab Results 07/12/19 07/12/19 Range/Units 06:33 06:33 WBC 11.1 H (4.0-10.5) K/mm3 RBC 4.06 L (4.2-5.4) M/mm3 Hgb 10.7 L (12.5-16.0) gm/dL Hct 33.7 L (37.0-47.0) % MCH 26.4 L (27-31) pg MCHC 31.8 L (32-36) g/dl RDW 14.4 H (11.5-14.0) % Immature Gran % (Auto) 0.60 H (0.001-0.429) % Immature Gran # (Auto) 0.07 H (0.000-0.0310) K/mm3 Neutrophils % 76.8 H (42-75.0) % Lymphocytes % 14.9 L (20-51) % Neutrophils # 8.5 H (1.3-6.0) K/mm3 Chloride 95 L (97-106) mmol/L Carbon Dioxide 33.6 H (24-32.6) mmol/L Random Glucose 286 H (70-110) mg/dL - Exam Constitutional: Present: Alert, Oriented x3, Cooperative, No distress Cauti Physician Documentation - Urinary Catheter Management 2-way Urethral Urethral Indwelling: Yes Date of Insertion: 07/10/19 Time of Insertion: 14:05 Assessment/Plan - Problems/Diagnosis (1) Acute blood loss anemia Problem: Acute Narrative: 10.7 down from 14.2 on admission, clinically she is asymptomatic at this time (2) Fall Problem: Acute (3) Diabetes mellitus Problem: Chronic Qualifiers: Diabetes mellitus type: type 2 Diabetes mellitus intermediate designer insulin use: without senior living use Diabetes mellitus complication status: without complication Qualified Code(s): E11.9 - Type 2 diabetes mellitus without complications Narrative: Blood sugars have been improving since admission on BMP (4) Closed intertrochanteric fracture of left femur Problem: Acute Qualifiers: Encounter type: initial encounter Fracture alignment: displaced Qualified Code(s): S72.142A - Displaced intertrochanteric fracture of left femur, initial encounter for closed fracture Narrative: Postop day 1 cephalo-medullary fixation. Pain is adequately controlled at this point time. Patient will need 6 weeks of anticoagulation. They are looking at getting her home in the next day with possible home health. She does have a strong family support system in the area as well. Continue working with physical therapy today. Dressing change tomorrow. (5) Hypertension Problem: Chronic Qualifiers: Hypertension type: essential hypertension Qualified Code(s): I10 - Essential (primary) hypertension (6) Hyperlipidemia Problem: Chronic Qualifiers: Hyperlipidemia type: mixed hyperlipidemia Qualified Code(s): E78.2 - Mixed hyperlipidemia
--- NOTE | 2019-07-12 17:08 | PN ---
Subjective - Date and Time Seen Date: 07/12/19 Time: 09:32 Subjective Narrative: She states her pain is fairly well controlled. She complains of nausea but no vomiting. Objective - Review of Systems Generalized/Overall Review: Denies: Chills, Fever Respiratory: Denies: Shortness of Breath Cardiac: Denies: Chest Pain, Edema Abdominal: Reports: Nausea. Denies: Vomiting, Abdominal Pain Misc: All systems neg except as marked - Vitals Vitals: Last Vital Signs Temp 36.4 C 07/12/19 14:00 Pulse 85 07/12/19 14:00 Resp 16 07/12/19 14:00 BP 128/69 07/12/19 14:00 Pulse Ox 94 07/12/19 14:15 - Abnormal Lab Findings Abnormal Lab Findings: Abnormal Lab Results 07/12/19 07/12/19 Range/Units 06:33 06:33 WBC 11.1 H (4.0-10.5) K/mm3 RBC 4.06 L (4.2-5.4) M/mm3 Hgb 10.7 L (12.5-16.0) gm/dL Hct 33.7 L (37.0-47.0) % MCH 26.4 L (27-31) pg MCHC 31.8 L (32-36) g/dl RDW 14.4 H (11.5-14.0) % Immature Gran % (Auto) 0.60 H (0.001-0.429) % Immature Gran # (Auto) 0.07 H (0.000-0.0310) K/mm3 Neutrophils % 76.8 H (42-75.0) % Lymphocytes % 14.9 L (20-51) % Neutrophils # 8.5 H (1.3-6.0) K/mm3 Chloride 95 L (97-106) mmol/L Carbon Dioxide 33.6 H (24-32.6) mmol/L Random Glucose 286 H (70-110) mg/dL - Exam Constitutional: Present: Alert, Cooperative, Well developed, Well nourished, No distress ENT Exam: Present: hearing grossly normal Neck: Present: non-tender, supple, trachea midline. Absent: lymphadenopathy (R), lymphadenopathy (L) Respiratory: Present: lungs clear, normal breath sounds, no respiratory distress, no accessory muscle use, No wheezing Cardiovascular/Chest: Present: normal peripheral pulses, regular rate, rhythm, no murmur Abdomen: Present: Normal bowel sounds, soft, nontender Extremity: Present: no pedal edema Skin Exam: Present: normal color, warm/dry Neurologic: Present: alert, normal mood/affect Appearance: Present: appropriate appearance, appropriate insight Eye contact: Present: cooperative Thoughts: Present: normal thought pattern, normal mood /affect Cauti Physician Documentation - Urinary Catheter Management 2-way Urethral Urethral Indwelling: Yes Date of Insertion: 07/10/19 Time of Insertion: 14:05 Assessment/Plan Plan Narrative: 63-year-old female with a past medical history of depression, hypertension, hyperlipidemia, anxiety alisha presents with left hip fracture. She is postop day 1. Plan #1 continue with pain management and anticoagulation #2 continue with Zofran as needed for nausea #3 continue with bowel regimen #4 continue with PT and OT #5 continue home medications for comorbidities - Problems/Diagnosis (1) Closed intertrochanteric fracture of left femur Problem: Acute Qualifiers: Encounter type: initial encounter Fracture alignment: displaced Qualified Code(s): S72.142A - Displaced intertrochanteric fracture of left femur, initial encounter for closed fracture (2) Hypertension Problem: Chronic Qualifiers: Hypertension type: essential hypertension Qualified Code(s): I10 - Essential (primary) hypertension (3) Depression Problem: Chronic Qualifiers: Depression Type: major depressive disorder Major depression recurrence: recurrent Active/Remission status: remission status unspecified Qualified Code(s): F33.9 - Major depressive disorder, recurrent, unspecified (4) Anxiety disorder Problem: Chronic Qualifiers: Anxiety disorder type: generalized anxiety disorder Qualified Code(s): F41.1 - Generalized anxiety disorder
[2019-07-12] MEDS: SENNOSIDES/DOCUSATE SODIUM 1 TAB TABLET PO SCH (20:01)
[2019-07-12] MEDS: ROSUVASTATIN CALCIUM 10 MG TABLET PO SCH (20:01)
[2019-07-12] MEDS: CYCLOBENZAPRINE HCL 10 MG TABLET PO PRN (22:56)
[2019-07-12] MEDS: MAG HYDROX/ALUMINUM HYD/SIMETH 30 ML UDC PO PRN (22:56)
[2019-07-13] MEDS: HYDROcodone/ACETAMINOPHEN 1 EACH TABLET PO PRN ×4 (00:53→17:43)
[2019-07-13 07:02] LABS: Hematocrit 31.8 % (37.0-47.0); Hemoglobin 10.3 gm/dL (12.5-16.0); Mean Corpuscular Hemoglobin 26.5 pg (27-31); Mean Corpuscular Hgb Conc 32.4 g/dl (32-36); Mean Platelet Volume 9.9 fl (8-12.5); Neutrophil # 7.5 K/mm3 (1.3-6.0); Neutrophil % 74.5 % (42-75.0); Platelet Count 210 K/mm3 (150-450); Red Blood Count 3.88 M/mm3 (4.2-5.4); Red Cell Distribution Width 14.3 % (11.5-14.0); White Blood Count 10.1 K/mm3 (4.0-10.5)
[2019-07-13 07:08] LABS: Anion Gap 9.1 mmol/L (6.8-13.8); BUN/Creatinine Ratio 13.5 (9.0-21.6); Bilirubin, Total 0.5 mg/dL (0.0-1.1); Ca. Corrected For Albumin 9.5 mg/dL (8.4-10.2); Carbon Dioxide 36.3 mmol/L (24-32.6); Potassium 3.4 mmol/L (3.4-4.6); Total Protein 7.4 gm/dL (6.2-8.2)
[2019-07-13] MEDS: PANTOPRAZOLE SODIUM 20 MG TABLET.DR PO SCH (07:10)
[2019-07-13] MEDS: LEVOTHYROXINE SODIUM 50 MCG TABLET PO SCH (07:11)
[2019-07-13] MEDS: INSULIN LISPRO 100 UNITS/ML VIAL SC SCH ×4 (07:19→20:31)
[2019-07-13] MEDS: ONDANSETRON HCL/PF 2 MG/ML VIAL IV PRN (08:19)
--- NOTE | 2019-07-13 08:23 | PN ---
Subjective - Date and Time Seen Date: 07/13/19 Time: 08:19 Subjective Narrative: Patient is currently work with therapy. Therapy reports that she had some vomiting this morning when she got up and moved around. Therapy felt that most likely related to that activity. Patient does not feel is related to medication. She has no chest pain or shortness of breath. And no other complaints. Her biggest concern is getting ready to go home and if she will need some extended skilled care before she is ready to go home due to the fact that she lives alone. Objective Objective Narrative: Patient is up ambulating. She was able to get over the chair and sit down. She is able to plantarflex and dorsiflex her ankles. Dressings intact. Patient is alert oriented and responds to questions appropriately. - Vitals Vitals: Last Vital Signs Temp 36.2 C 07/13/19 06:44 Pulse 95 07/13/19 06:44 Resp 20 07/13/19 06:44 BP 147/76 07/13/19 06:44 Pulse Ox 93 07/13/19 06:44 - Abnormal Lab Findings Abnormal Lab Findings: Abnormal Lab Results 07/13/19 07/13/19 Range/Units 06:50 06:50 RBC 3.88 L (4.2-5.4) M/mm3 Hgb 10.3 L (12.5-16.0) gm/dL Hct 31.8 L (37.0-47.0) % MCH 26.5 L (27-31) pg RDW 14.3 H (11.5-14.0) % Immature Gran % (Auto) 0.50 H (0.001-0.429) % Immature Gran # (Auto) 0.05 H (0.000-0.0310) K/mm3 Lymphocytes % 17.2 L (20-51) % Neutrophils # 7.5 H (1.3-6.0) K/mm3 Chloride 94 L (97-106) mmol/L Carbon Dioxide 36.3 H (24-32.6) mmol/L Random Glucose 244 H (70-110) mg/dL Albumin 3.0 L (3.4-5.0) gm/dl - Exam Constitutional: Present: Alert, Oriented x3, Cooperative, No distress Cauti Physician Documentation - Urinary Catheter Management 2-way Urethral Urethral Indwelling: Yes Date of Insertion: 07/10/19 Time of Insertion: 14:05 Assessment/Plan - Problems/Diagnosis (1) Acute blood loss anemia Problem: Acute Narrative: 10.3 g down from above 14 preoperatively. At this time she is asymptomatic regarding this and will continue to observe. (2) Fall Problem: Acute (3) Diabetes mellitus Problem: Chronic Qualifiers: Diabetes mellitus type: type 2 Diabetes mellitus long term care administrator insulin use: without mcc use Diabetes mellitus complication status: without complication Qualified Code(s): E11.9 - Type 2 diabetes mellitus without complications (4) Closed intertrochanteric fracture of left femur Problem: Acute Qualifiers: Encounter type: initial encounter Fracture alignment: displaced Qualified Code(s): S72.142A - Displaced intertrochanteric fracture of left femur, initial encounter for closed fracture (5) Hypertension Problem: Chronic Qualifiers: Hypertension type: essential hypertension Qualified Code(s): I10 - Essential (primary) hypertension (6) Hyperlipidemia Problem: Chronic Qualifiers: Hyperlipidemia type: mixed hyperlipidemia Qualified Code(s): E78.2 - Mixed hyperlipidemia (7) Hip fracture Problem: Acute Narrative: PT, anticoagulation, pain control. With patient living alone she may need nursing skilled care for period of time. This was discussed with her today.
[2019-07-13] MEDS: APIXABAN 2.5 MG TABLET PO SCH ×2 (11:11→20:30)
[2019-07-13] MEDS: CALCIUM CARBONATE/VITAMIN D3 1 TAB TABLET PO SCH ×2 (11:11→20:30)
[2019-07-13] MEDS: MULTIVITAMINS 1 CAP CAPSULE PO SCH (11:12)
[2019-07-13] MEDS: amLODIPine BESYLATE 10 MG TABLET PO SCH (11:12)
[2019-07-13] MEDS: HYDROCHLOROTHIAZIDE 25 MG TABLET PO SCH (11:12)
[2019-07-13] MEDS: SERTRALINE HCL 100 MG TABLET PO SCH (11:13)
[2019-07-13] MEDS: [UNRECOGNIZED DRUG - OTHER] PO SCH (11:16)
--- NOTE | 2019-07-13 13:20 | PN ---
Subjective - Date and Time Seen Date: 07/13/19 Time: 13:17 Subjective Narrative: No acute events overnight. Pain well controlled. +Flatus. Appetite at baseline. UOP adequate. Objective - Review of Systems Generalized/Overall Review: Denies: Weakness Respiratory: Denies: Cough, Shortness of Breath, Orthopnea, Stridor, Wheezing Cardiac: Denies: Chest Pain, Edema Abdominal: Denies: Abdominal Pain Genitourinary Symptoms: Denies: Burning, Urgency, Frequency Musculoskeletal Complaints: Reports: Joint Pain - left hip. Denies: Joint Swelling Skin: Denies: Dryness - Vitals Vitals: Last Vital Signs Temp 35.9 C L 07/13/19 08:36 Pulse 97 07/13/19 11:12 Resp 14 07/13/19 08:36 BP 147/80 07/13/19 11:12 Pulse Ox 96 07/13/19 09:28 - Abnormal Lab Findings Abnormal Lab Findings: Abnormal Lab Results 07/13/19 07/13/19 Range/Units 06:50 06:50 RBC 3.88 L (4.2-5.4) M/mm3 Hgb 10.3 L (12.5-16.0) gm/dL Hct 31.8 L (37.0-47.0) % MCH 26.5 L (27-31) pg RDW 14.3 H (11.5-14.0) % Immature Gran % (Auto) 0.50 H (0.001-0.429) % Immature Gran # (Auto) 0.05 H (0.000-0.0310) K/mm3 Lymphocytes % 17.2 L (20-51) % Neutrophils # 7.5 H (1.3-6.0) K/mm3 Chloride 94 L (97-106) mmol/L Carbon Dioxide 36.3 H (24-32.6) mmol/L Random Glucose 244 H (70-110) mg/dL Albumin 3.0 L (3.4-5.0) gm/dl - Exam Constitutional: Present: Alert, Oriented x3, Cooperative, Well developed, No distress ENT Exam: Present: hearing grossly normal Respiratory: Present: lungs clear, normal breath sounds, no respiratory distress, no accessory muscle use Cardiovascular/Chest: Present: normal peripheral pulses, regular rate, rhythm, no chest tenderness, no edema, no gallop, no JVD, no murmur Extremity: Present: normal range of motion, non-tender, normal inspection, no pedal edema, no calf tenderness Skin Exam: Present: normal color, warm/dry Appearance: Present: appropriate appearance Eye contact: Present: cooperative Cauti Physician Documentation - Urinary Catheter Management 2-way Urethral Urethral Indwelling: Yes Date of Insertion: 07/10/19 Time of Insertion: 14:05 Assessment/Plan Plan Narrative: 63 year old Female s/p left hip repair POD#2 S/P Left hip repair POD #2. * Pain well controlled * Continue PT FEN: Consistent Carbs and KRZYSZTOF Diet DVT PPX: Lovenox CODE STATUS: FULL CODE Disposition: - Awaiting PT recommendations - Problems/Diagnosis (1) Closed left hip fracture Problem: Acute Qualifiers: Encounter type: initial encounter Qualified Code(s): S72.002A - Fracture of unspecified part of neck of left femur, initial encounter for closed fracture (2) Leukocytosis Problem: Acute Qualifiers: Leukocytosis type: leukemoid reaction Qualified Code(s): D72.823 - Leukemoid reaction (3) Muscle spasm Problem: Acute (4) Diabetes mellitus Problem: Chronic Qualifiers: Diabetes mellitus type: type 2 Diabetes mellitus roof bolter insulin use: without roof bolter use Diabetes mellitus complication status: without complication Qualified Code(s): E11.9 - Type 2 diabetes mellitus without complications (5) Hypertension Problem: Chronic Qualifiers: Hypertension type: essential hypertension Qualified Code(s): I10 - Essential (primary) hypertension (6) Hyperlipidemia Problem: Chronic Qualifiers: Hyperlipidemia type: mixed hyperlipidemia Qualified Code(s): E78.2 - Mixed hyperlipidemia (7) Depression Problem: Chronic Qualifiers: Depression Type: major depressive disorder Major depression recurrence: recurrent Active/Remission status: remission status unspecified Qualified Code(s): F33.9 - Major depressive disorder, recurrent, unspecified (8) Anxiety disorder Problem: Chronic Qualifiers: Anxiety disorder type: generalized anxiety disorder Qualified Code(s): F41.1 - Generalized anxiety disorder
[2019-07-13] MEDS: CYCLOBENZAPRINE HCL 10 MG TABLET PO PRN (17:51)
[2019-07-13] MEDS: ACETAMINOPHEN 500 MG TABLET PO PRN (20:29)
[2019-07-13] MEDS: SENNOSIDES/DOCUSATE SODIUM 1 TAB TABLET PO SCH (20:30)
[2019-07-13] MEDS: ROSUVASTATIN CALCIUM 10 MG TABLET PO SCH (20:30)
[2019-07-14] MEDS: HYDROcodone/ACETAMINOPHEN 1 EACH TABLET PO PRN ×3 (03:46→17:52)
[2019-07-14] MEDS: CYCLOBENZAPRINE HCL 10 MG TABLET PO PRN ×2 (03:46→17:52)
[2019-07-14 06:44] LABS: Hematocrit 30.2 % (37.0-47.0); Hemoglobin 9.7 gm/dL (12.5-16.0); Mean Cell Volume 82.7 fl (78-100); Mean Corpuscular Hemoglobin 26.6 pg (27-31); Mean Corpuscular Hgb Conc 32.1 g/dl (32-36); Mean Platelet Volume 10.2 fl (8-12.5); Neutrophil # 6.3 K/mm3 (1.3-6.0); Neutrophil % 73.1 % (42-75.0); Platelet Count 228 K/mm3 (150-450); Red Blood Count 3.65 M/mm3 (4.2-5.4); Red Cell Distribution Width 14.2 % (11.5-14.0); White Blood Count 8.6 K/mm3 (4.0-10.5)
[2019-07-14 06:59] LABS: Albumin * 2.8 gm/dl (3.4-5.0); Anion Gap 7.7 mmol/L (6.8-13.8); BUN/Creatinine Ratio 18.5 (9.0-21.6); Bilirubin, Total 0.4 mg/dL (0.0-1.1); Ca. Corrected For Albumin 9.5 mg/dL (8.4-10.2); Calcium * 8.9 mg/dL (7.9-10.9); Carbon Dioxide 36.7 mmol/L (24-32.6); Potassium 3.4 mmol/L (3.4-4.6)
[2019-07-14 07:03] LABS: Hemoglobin A1C 13.2 % (4.00-6.0)
[2019-07-14] MEDS: LEVOTHYROXINE SODIUM 50 MCG TABLET PO SCH (07:33)
[2019-07-14] MEDS: PANTOPRAZOLE SODIUM 20 MG TABLET.DR PO SCH (07:33)
[2019-07-14] MEDS: INSULIN LISPRO 100 UNITS/ML VIAL SC SCH ×4 (07:34→21:25)
[2019-07-14] MEDS ORDERED: LABETALOL HCL 5 MG/ML VIAL IV ONE (08:05)
[2019-07-14] MEDS: CALCIUM CARBONATE/VITAMIN D3 1 TAB TABLET PO SCH ×2 (10:11→21:18)
[2019-07-14] MEDS: APIXABAN 2.5 MG TABLET PO SCH ×2 (10:11→21:19)
[2019-07-14] MEDS: [UNRECOGNIZED DRUG - OTHER] PO SCH (10:12)
[2019-07-14] MEDS: HYDROCHLOROTHIAZIDE 25 MG TABLET PO SCH (10:12)
[2019-07-14] MEDS: amLODIPine BESYLATE 10 MG TABLET PO SCH (10:12)
[2019-07-14] MEDS: MULTIVITAMINS 1 CAP CAPSULE PO SCH (10:12)
[2019-07-14] MEDS: SERTRALINE HCL 100 MG TABLET PO SCH (10:13)
[2019-07-14] MEDS: INSULIN GLARGINE,HUM.REC.ANLOG 100 UNITS/ML VIAL SC SCH ×2 (10:16→21:26)
[2019-07-14] MEDS: MAG HYDROX/ALUMINUM HYD/SIMETH 30 ML UDC PO PRN (11:32)
--- NOTE | 2019-07-14 12:33 | PN ---
Subjective - Date and Time Seen Date: 07/14/19 Time: 12:30 Subjective Narrative: Cris reports that she is feeling a bit better today. She states that they are looking into getting her into a skilled care center for some more rehab as she lives home independently. She reports her pain is adequately controlled. She discussed her concerns of her elevated blood sugars and that she is going to work better on her diet as well as medical management of this. Objective Objective Narrative: Patient is currently up in chair eating lunch. She is alert and oriented cooperative examined in no distress. Dressings were changed earlier today and the current dressings are clean dry and intact. - Vitals Vitals: Last Vital Signs Temp 37.3 C 07/14/19 10:00 Pulse 89 07/14/19 11:40 Resp 16 07/14/19 10:00 BP 148/78 07/14/19 11:40 Pulse Ox 93 07/14/19 10:00 - Abnormal Lab Findings Abnormal Lab Findings: Abnormal Lab Results 07/14/19 07/14/19 07/14/19 Range/Units 06:41 06:41 06:41 RBC 3.65 L (4.2-5.4) M/mm3 Hgb 9.7 L (12.5-16.0) gm/dL Hct 30.2 L (37.0-47.0) % MCH 26.6 L (27-31) pg RDW 14.2 H (11.5-14.0) % Immature Gran % (Auto) 0.70 H (0.001-0.429) % Immature Gran # (Auto) 0.06 H (0.000-0.0310) K/mm3 Lymphocytes % 17.9 L (20-51) % Neutrophils # 6.3 H (1.3-6.0) K/mm3 Chloride 95 L (97-106) mmol/L Carbon Dioxide 36.7 H (24-32.6) mmol/L Random Glucose 262 H (70-110) mg/dL Hemoglobin A1c 13.2 H (4.00-6.0) % Albumin 2.8 L (3.4-5.0) gm/dl - Exam Constitutional: Present: Alert, Oriented x3, Cooperative, No distress Cauti Physician Documentation - Urinary Catheter Management 2-way Urethral Urethral Indwelling: Yes Date of Insertion: 07/10/19 Time of Insertion: 14:05 Assessment/Plan - Problems/Diagnosis (1) Acute blood loss anemia Problem: Acute (2) Fall Problem: Acute (3) Diabetes mellitus Problem: Chronic Qualifiers: Diabetes mellitus type: type 2 Diabetes mellitus exterminator helper termite insulin use: without exterminator helper termite use Diabetes mellitus complication status: without complication Qualified Code(s): E11.9 - Type 2 diabetes mellitus without complications (4) Closed intertrochanteric fracture of left femur Problem: Acute Qualifiers: Encounter type: initial encounter Fracture alignment: displaced Qualified Code(s): S72.142A - Displaced intertrochanteric fracture of left femur, initial encounter for closed fracture (5) Hypertension Problem: Chronic Qualifiers: Hypertension type: essential hypertension Qualified Code(s): I10 - Essential (primary) hypertension (6) Hyperlipidemia Problem: Chronic Qualifiers: Hyperlipidemia type: mixed hyperlipidemia Qualified Code(s): E78.2 - Mixed hyperlipidemia (7) Hip fracture Problem: Acute Narrative: Continue physical therapy. Pain control. Anticoagulation. Placement in skilled facility when one becomes available for progressive rehabilitation.
--- NOTE | 2019-07-14 17:18 | PN ---
Subjective - Date and Time Seen Date: 07/14/19 Time: 08:15 Subjective Narrative: No acute events overnight. Pain well controlled. Discussed about tight glycemic control. +flatus. intake and output at baseline. Objective - Review of Systems Generalized/Overall Review: Denies: Weakness Respiratory: Denies: Cough, Shortness of Breath Cardiac: Denies: Chest Pain, Edema Abdominal: Denies: Nausea, Vomiting, Abdominal Pain Genitourinary Symptoms: Denies: Itching, Urgency Musculoskeletal Complaints: Reports: Joint Pain - left hip - Vitals Vitals: Last Vital Signs Temp 36.9 C 07/14/19 15:14 Pulse 91 07/14/19 15:14 Resp 25 H 07/14/19 15:14 BP 155/58 H 07/14/19 15:14 Pulse Ox 96 07/14/19 15:14 - Abnormal Lab Findings Abnormal Lab Findings: Abnormal Lab Results 07/14/19 07/14/19 07/14/19 Range/Units 06:41 06:41 06:41 RBC 3.65 L (4.2-5.4) M/mm3 Hgb 9.7 L (12.5-16.0) gm/dL Hct 30.2 L (37.0-47.0) % MCH 26.6 L (27-31) pg RDW 14.2 H (11.5-14.0) % Immature Gran % (Auto) 0.70 H (0.001-0.429) % Immature Gran # (Auto) 0.06 H (0.000-0.0310) K/mm3 Lymphocytes % 17.9 L (20-51) % Neutrophils # 6.3 H (1.3-6.0) K/mm3 Chloride 95 L (97-106) mmol/L Carbon Dioxide 36.7 H (24-32.6) mmol/L Random Glucose 262 H (70-110) mg/dL Hemoglobin A1c 13.2 H (4.00-6.0) % Albumin 2.8 L (3.4-5.0) gm/dl - Exam Constitutional: Present: Alert, Oriented x3, Cooperative, Well developed, No distress ENT Exam: Present: hearing grossly normal Neck: Present: non-tender, full range of motion Respiratory: Present: lungs clear, normal breath sounds, no respiratory distress, no accessory muscle use Cardiovascular/Chest: Present: normal peripheral pulses, regular rate, rhythm, no chest tenderness, no edema, no gallop, no JVD, no murmur Abdomen: Present: Normal bowel sounds, soft, nontender Extremity: Present: non-tender, normal inspection, no pedal edema, no calf tenderness, normal capillary refill Skin Exam: Present: normal color, warm/dry Lymphatic: Present: no adenopathy Neurologic: Present: alert, oriented x 3 Appearance: Present: appropriate appearance Eye contact: Present: cooperative Thoughts: Present: normal thought pattern Cauti Physician Documentation - Urinary Catheter Management 2-way Urethral Urethral Indwelling: Yes Date of Insertion: 07/10/19 Time of Insertion: 14:05 Assessment/Plan Plan Narrative: Assessment/Plan Plan Narrative: 63 year old Female s/p left hip repair POD#3 S/P Left hip repair POD #3 * Pain well controlled * Continue PT Diabetes * poorly controlled * a1c 13.1 * Increased aspart to 10 units TID with meals along with HDSS * Started on lantus 10 units BIS Hypertension * not well controlled * labetalol 5mg IV * Continue home medications FEN: Consistent Carbs and KRZYSZTOF Diet DVT PPX: Lovenox CODE STATUS: FULL CODE Disposition: - Awaiting PT recommendations - Tight glycemic control - Monitor Blood Pressure - Problems/Diagnosis (1) Closed left hip fracture Problem: Acute Qualifiers: Encounter type: initial encounter Qualified Code(s): S72.002A - Fracture of unspecified part of neck of left femur, initial encounter for closed fracture (2) Leukocytosis Problem: Acute Qualifiers: Leukocytosis type: leukemoid reaction Qualified Code(s): D72.823 - Leukemoid reaction (3) Muscle spasm Problem: Acute (4) Diabetes mellitus Problem: Chronic Qualifiers: Diabetes mellitus type: type 2 Diabetes mellitus superintendent terminal insulin use: without superintendent terminal use Diabetes mellitus complication status: without complication Qualified Code(s): E11.9 - Type 2 diabetes mellitus without complications (5) Hypertension Problem: Chronic Qualifiers: Hypertension type: essential hypertension Qualified Code(s): I10 - Es sential (primary) hypertension (6) Hyperlipidemia Problem: Chronic Qualifiers: Hyperlipidemia type: mixed hyperlipidemia Qualified Code(s): E78.2 - Mixed hyperlipidemia (7) Depression Problem: Chronic Qualifiers: Depression Type: major depressive disorder Major depression recurrence: recurrent Active/Remission status: remission status unspecified Qualified Code(s): F33.9 - Major depressive disorder, recurrent, unspecified (8) Anxiety disorder Problem: Chronic Qualifiers: Anxiety disorder type: generalized anxiety disorder Qualified Code(s): F41.1 - Generalized anxiety disorder
[2019-07-14] MEDS: ROSUVASTATIN CALCIUM 10 MG TABLET PO SCH (21:19)
[2019-07-14] MEDS: SENNOSIDES/DOCUSATE SODIUM 1 TAB TABLET PO SCH (21:20)
[2019-07-15] MEDS: HYDROcodone/ACETAMINOPHEN 1 EACH TABLET PO PRN ×2 (00:07→05:29)
[2019-07-15] MEDS: CYCLOBENZAPRINE HCL 10 MG TABLET PO PRN ×2 (03:08→13:40)
[2019-07-15 05:21] LABS: Hematocrit 29.3 % (37.0-47.0); Hemoglobin 9.5 gm/dL (12.5-16.0); Mean Cell Volume 83.2 fl (78-100); Mean Corpuscular Hgb Conc 32.4 g/dl (32-36); Mean Platelet Volume 9.7 fl (8-12.5); Neutrophil # 5.9 K/mm3 (1.3-6.0); Platelet Count 239 K/mm3 (150-450); Red Blood Count 3.52 M/mm3 (4.2-5.4); Red Cell Distribution Width 14.4 % (11.5-14.0); White Blood Count 8.7 K/mm3 (4.0-10.5)
[2019-07-15 05:42] LABS: Albumin * 2.6 gm/dl (3.4-5.0); Anion Gap 6.7 mmol/L (6.8-13.8); BUN/Creatinine Ratio 21.6 (9.0-21.6); Bilirubin, Total 0.4 mg/dL (0.0-1.1); Ca. Corrected For Albumin 9.5 mg/dL (8.4-10.2); Calcium * 8.7 mg/dL (7.9-10.9); Carbon Dioxide 36.8 mmol/L (24-32.6); Potassium 3.5 mmol/L (3.4-4.6); Total Protein 6.7 gm/dL (6.2-8.2)
[2019-07-15] MEDS: LEVOTHYROXINE SODIUM 50 MCG TABLET PO SCH (06:51)
[2019-07-15] MEDS: PANTOPRAZOLE SODIUM 20 MG TABLET.DR PO SCH (06:51)
[2019-07-15] MEDS: INSULIN LISPRO 100 UNITS/ML VIAL SC SCH ×4 (06:51→21:11)
--- NOTE | 2019-07-15 08:10 | PN ---
Subjective - Date and Time Seen Date: 07/15/19 Time: 08:08 Subjective Narrative: Patient reports she feels she is starting to turn the corner. She reports pain with ambulating is around a 3 or 4. With sitting it can be 0-1. She reports no lightheadedness dizziness. She has no other complaints. Objective Objective Narrative: Bandages clean dry intact. Calf supple. She is able to plantarflex and dorsiflex her left ankle. She is up in chair at this time eating breakfast. She is alert and oriented and cooperative exam. - Vitals Vitals: Last Vital Signs Temp 35.9 C L 07/15/19 07:33 Pulse 77 07/15/19 07:33 Resp 16 07/15/19 07:33 BP 135/77 07/15/19 07:33 Pulse Ox 99 07/15/19 07:33 - Abnormal Lab Findings Abnormal Lab Findings: Abnormal Lab Results 07/15/19 07/15/19 Range/Units 05:15 05:15 RBC 3.52 L (4.2-5.4) M/mm3 Hgb 9.5 L (12.5-16.0) gm/dL Hct 29.3 L (37.0-47.0) % RDW 14.4 H (11.5-14.0) % Immature Gran % (Auto) 0.60 H (0.001-0.429) % Immature Gran # (Auto) 0.05 H (0.000-0.0310) K/mm3 Carbon Dioxide 36.8 H (24-32.6) mmol/L Anion Gap 6.7 L (6.8-13.8) mmol/L Random Glucose 220 H (70-110) mg/dL Albumin 2.6 L (3.4-5.0) gm/dl Cauti Physician Documentation - Urinary Catheter Management 2-way Urethral Urethral Indwelling: Yes Date of Insertion: 07/10/19 Time of Insertion: 14:05 Assessment/Plan - Problems/Diagnosis (1) Acute blood loss anemia Problem: Acute Narrative: Hemoglobin is stabilized. She is asymptomatic. (2) Fall Problem: Acute (3) Diabetes mellitus Problem: Chronic Qualifiers: Diabetes mellitus type: type 2 Diabetes mellitus intermediate insulin use: without manager terminal use Diabetes mellitus complication status: without complication Qualified Code(s): E11.9 - Type 2 diabetes mellitus without complications Narrative: Patient's blood sugars are starting to improve on her BMP. Patient reports that she is going to look into making her dietary changes to improve her diabetes. (4) Closed intertrochanteric fracture of left femur Problem: Acute Qualifiers: Encounter type: initial encounter Fracture alignment: displaced Qualified Code(s): S72.142A - Displaced intertrochanteric fracture of left femur, initial encounter for closed fracture (5) Hypertension Problem: Chronic Qualifiers: Hypertension type: essential hypertension Qualified Code(s): I10 - Essential (primary) hypertension (6) Hyperlipidemia Problem: Chronic Qualifiers: Hyperlipidemia type: mixed hyperlipidemia Qualified Code(s): E78.2 - Mixed hyperlipidemia (7) Hip fracture Problem: Acute Narrative: Continue physical therapy. Anticoagulation. Pain control. They are looking at skilled care center for patient.
[2019-07-15] MEDS: CALCIUM CARBONATE/VITAMIN D3 1 TAB TABLET PO SCH ×2 (08:38→21:14)
[2019-07-15] MEDS: APIXABAN 2.5 MG TABLET PO SCH ×2 (08:38→21:10)
[2019-07-15] MEDS: INSULIN GLARGINE,HUM.REC.ANLOG 100 UNITS/ML VIAL SC SCH ×2 (08:39→21:14)
[2019-07-15] MEDS: amLODIPine BESYLATE 10 MG TABLET PO SCH (08:39)
[2019-07-15] MEDS: MULTIVITAMINS 1 CAP CAPSULE PO SCH (08:39)
[2019-07-15] MEDS: [UNRECOGNIZED DRUG - OTHER] PO SCH (08:40)
[2019-07-15] MEDS: LISINOPRIL 40 MG TABLET PO SCH (08:40)
[2019-07-15] MEDS: SERTRALINE HCL 100 MG TABLET PO SCH (08:40)
--- NOTE | 2019-07-15 10:18 | PN ---
Subjective - Date and Time Seen Date: 07/15/19 Time: 10:14 Objective - Review of Systems Generalized/Overall Review: Denies: Chills, Fever EENTM: Denies: Blurred Vision Respiratory: Reports: Cough. Denies: Shortness of Breath, Orthopnea, Wheezing Cardiac: Denies: Chest Pain, Edema, Palpitations Abdominal: Denies: Nausea, Vomiting, Abdominal Pain Genitourinary Symptoms: Denies: Urgency, Frequency Musculoskeletal Complaints: Reports: Joint Pain Neurological: Denies: Headache Skin: Denies: Lesions, Rash Misc: All systems neg except as marked - Vitals Vitals: Last Vital Signs Temp 35.9 C L 07/15/19 07:33 Pulse 77 07/15/19 08:40 Resp 16 07/15/19 07:33 BP 135/77 07/15/19 08:40 Pulse Ox 99 07/15/19 07:33 - Abnormal Lab Findings Abnormal Lab Findings: Abnormal Lab Results 07/15/19 07/15/19 Range/Units 05:15 05:15 RBC 3.52 L (4.2-5.4) M/mm3 Hgb 9.5 L (12.5-16.0) gm/dL Hct 29.3 L (37.0-47.0) % RDW 14.4 H (11.5-14.0) % Immature Gran % (Auto) 0.60 H (0.001-0.429) % Immature Gran # (Auto) 0.05 H (0.000-0.0310) K/mm3 Carbon Dioxide 36.8 H (24-32.6) mmol/L Anion Gap 6.7 L (6.8-13.8) mmol/L Random Glucose 220 H (70-110) mg/dL Albumin 2.6 L (3.4-5.0) gm/dl - Exam Constitutional: Present: Alert, Oriented x3, Cooperative ENT Exam: Present: hearing grossly normal Neck: Present: supple. Absent: lymphadenopathy (R), lymphadenopathy (L) Respiratory: Present: normal breath sounds, No rales, No wheezing Cardiovascular/Chest: Present: regular rate, rhythm, no JVD, no murmur Abdomen: Present: Normal bowel sounds, soft, nontender, nondistended Extremity: Present: no pedal edema, no calf tenderness Cauti Physician Documentation - Urinary Catheter Management 2-way Urethral Urethral Indwelling: Yes Date of Insertion: 07/10/19 Time of Insertion: 14:05 Assessment/Plan Plan Narrative: Cris is postop day 4 status post close reduction internal fixation of inter trochanteric fracture. She has been working with physical therapy and has done the steps. She feels she is moving along better. Continue with PT/OT and DVT prophylaxis. Her blood sugar this morning is 220. Her long-acting insulin was just started last night and her short acting insulin was started on 07/10/2019 and she is on the high dose protocol at this time. We will continue to monitor sugar for now. - Problems/Diagnosis (1) Acute blood loss anemia Problem: Acute (2) Closed intertrochanteric fracture of left femur Problem: Acute Qualifiers: Encounter type: initial encounter Fracture alignment: displaced Qualified Code(s): S72.142A - Displaced intertrochanteric fracture of left femur, initial encounter for closed fracture (3) Diabetes mellitus Problem: Chronic Qualifiers: Diabetes mellitus type: type 2 Diabetes mellitus termite control service representative insulin use: without mcc use Diabetes mellitus complication status: without complication Qualified Code(s): E11.9 - Type 2 diabetes mellitus without complications (4) Hyperlipidemia Problem: Chronic Qualifiers: Hyperlipidemia type: mixed hyperlipidemia Qualified Code(s): E78.2 - Mixed hyperlipidemia (5) Hypertension Problem: Chronic Qualifiers: Hypertension type: essential hypertension Qualified Code(s): I10 - Essential (primary) hypertension (6) Anxiety disorder Problem: Chronic Qualifiers: Anxiety disorder type: generalized anxiety disorder Qualified Code(s): F41.1 - Generalized anxiety disorder (7) Depression Problem: Chronic Qualifiers: Depression Type: major depressive disorder Major depression recurrence: recurrent Active/Remission status: remission status unspecified Qualified Code(s): F33.9 - Major depressive disorder, recurrent, unspecified
[2019-07-15] MEDS: SENNOSIDES/DOCUSATE SODIUM 1 TAB TABLET PO SCH (21:10)
[2019-07-15] MEDS: ROSUVASTATIN CALCIUM 10 MG TABLET PO SCH (21:13)
[2019-07-15] MEDS: ACETAMINOPHEN 500 MG TABLET PO PRN (22:54)
[2019-07-16 05:06] LABS: Hematocrit 29.5 % (37.0-47.0); Hemoglobin 9.3 gm/dL (12.5-16.0); Mean Cell Volume 84.3 fl (78-100); Mean Corpuscular Hemoglobin 26.6 pg (27-31); Mean Corpuscular Hgb Conc 31.5 g/dl (32-36); Mean Platelet Volume 9.4 fl (8-12.5); Neutrophil # 5.3 K/mm3 (1.3-6.0); Neutrophil % 65.7 % (42-75.0); Platelet Count 288 K/mm3 (150-450); Red Cell Distribution Width 14.9 % (11.5-14.0); White Blood Count 8.1 K/mm3 (4.0-10.5)
[2019-07-16 05:21] LABS: Albumin * 2.4 gm/dl (3.4-5.0); Anion Gap 7.8 mmol/L (6.8-13.8); Bilirubin, Total 0.6 mg/dL (0.0-1.1); Ca. Corrected For Albumin 9.7 mg/dL (8.4-10.2); Calcium * 8.7 mg/dL (7.9-10.9); Carbon Dioxide 36.7 mmol/L (24-32.6); Potassium 3.5 mmol/L (3.4-4.6); Total Protein 6.4 gm/dL (6.2-8.2)
[2019-07-16] MEDS: LEVOTHYROXINE SODIUM 50 MCG TABLET PO SCH (07:18)
[2019-07-16] MEDS: PANTOPRAZOLE SODIUM 20 MG TABLET.DR PO SCH (07:18)
[2019-07-16] MEDS: INSULIN LISPRO 100 UNITS/ML VIAL SC SCH ×4 (07:21→21:15)
[2019-07-16] MEDS: [UNRECOGNIZED DRUG - OTHER] PO SCH (08:42)
[2019-07-16] MEDS: LISINOPRIL 40 MG TABLET PO SCH (08:52)
[2019-07-16] MEDS: SERTRALINE HCL 100 MG TABLET PO SCH (08:52)
[2019-07-16] MEDS: HYDROcodone/ACETAMINOPHEN 1 EACH TABLET PO PRN ×2 (08:52→14:01)
[2019-07-16] MEDS: APIXABAN 2.5 MG TABLET PO SCH ×2 (08:52→21:15)
[2019-07-16] MEDS: MULTIVITAMINS 1 CAP CAPSULE PO SCH (08:52)
[2019-07-16] MEDS: amLODIPine BESYLATE 10 MG TABLET PO SCH (08:52)
[2019-07-16] MEDS: CALCIUM CARBONATE/VITAMIN D3 1 TAB TABLET PO SCH ×2 (08:52→21:15)
[2019-07-16] MEDS: INSULIN GLARGINE,HUM.REC.ANLOG 100 UNITS/ML VIAL SC SCH ×2 (08:59→21:17)
[2019-07-16] MEDS: MAG HYDROX/ALUMINUM HYD/SIMETH 30 ML UDC PO PRN (09:06)
--- NOTE | 2019-07-16 11:37 | PN ---
Subjective - Date and Time Seen Date: 07/16/19 Time: 11:25 Subjective Narrative: Patient afebrile. Doing good with PT/OT. Objective - Review of Systems Generalized/Overall Review: Denies: Weakness, Chills, Fever EENTM: Denies: Blurred Vision Respiratory: Denies: Cough, Shortness of Breath Cardiac: Denies: Chest Pain, Edema, Palpitations Abdominal: Denies: Nausea, Vomiting, Hematemesis Genitourinary Symptoms: Denies: Urgency, Frequency Musculoskeletal Complaints: Reports: Joint Pain Neurological: Denies: Headache Skin: Denies: Lesions, Rash Misc: All systems neg except as marked - Vitals Vitals: Last Vital Signs Temp 35.9 C L 07/16/19 06:56 Pulse 90 07/16/19 10:05 Resp 20 07/16/19 06:56 BP 155/77 H 07/16/19 08:52 Pulse Ox 92 L 07/16/19 06:56 - Abnormal Lab Findings Abnormal Lab Findings: Abnormal Lab Results 07/16/19 07/16/19 Range/Units 05:00 05:00 RBC 3.50 L (4.2-5.4) M/mm3 Hgb 9.3 L (12.5-16.0) gm/dL Hct 29.5 L (37.0-47.0) % MCH 26.6 L (27-31) pg MCHC 31.5 L (32-36) g/dl RDW 14.9 H (11.5-14.0) % Immature Gran % (Auto) 0.60 H (0.001-0.429) % Immature Gran # (Auto) 0.05 H (0.000-0.0310) K/mm3 Carbon Dioxide 36.7 H (24-32.6) mmol/L BUN/Creatinine Ratio 25.0 H (9.0-21.6) Random Glucose 195 H (70-110) mg/dL Albumin 2.4 L (3.4-5.0) gm/dl - Exam Constitutional: Present: Alert, Oriented x3, Cooperative ENT Exam: Present: hearing grossly normal Neck: Present: supple. Absent: lymphadenopathy (R), lymphadenopathy (L) Respiratory: Present: normal breath sounds, No rales, No wheezing Cardiovascular/Chest: Present: regular rate, rhythm, no JVD, no murmur Abdomen: Present: Normal bowel sounds, soft, nontender, nondistended Extremity: Present: no pedal edema, no calf tenderness Cauti Physician Documentation - Urinary Catheter Management 2-way Urethral Urethral Indwelling: Yes Date of Insertion: 07/10/19 Time of Insertion: 14:05 Assessment/Plan Plan Narrative: Tyrones Accu-Chek this morning was 209 and her blood sugar on her BMP was 195. We will not make any changes at this time as it seems that her blood sugar is starting to go down with the addition of a long-acting insulin. Continue with PT/OT and DVT prophylaxis. Her elevated blood pressure is mostly systolic hypertension . She is already on an KYLEE inhibitor and some would feel that going over 40 mg will not make any significant change. We will restart her back on a diuretic-chlorthalidone. - Problems/Diagnosis (1) Acute blood loss anemia Problem: Acute (2) Closed intertrochanteric fracture of left femur Problem: Acute Qualifiers: Encounter type: initial encounter Fracture alignment: displaced Qualified Code(s): S72.142A - Displaced intertrochanteric fracture of left femur, initial encounter for closed fracture (3) Diabetes mellitus Problem: Chronic Qualifiers: Diabetes mellitus type: type 2 Diabetes mellitus termite control representative insulin use: without penitentiary use Diabetes mellitus complication status: without complication Qualified Code(s): E11.9 - Type 2 diabetes mellitus without complications (4) Hyperlipidemia Problem: Chronic Qualifiers: Hyperlipidemia type: mixed hyperlipidemia Qualified Code(s): E78.2 - Mixed hyperlipidemia (5) Hypertension Problem: Chronic Qualifiers: Hypertension type: essential hypertension Qualified Code(s): I10 - Essential (primary) hypertension (6) Anxiety disorder Problem: Chronic Qualifiers: Anxiety disorder type: generalized anxiety disorder Qualified Code(s): F41.1 - Generalized anxiety disorder (7) Depression Problem: Chronic Qualifiers: Depression Type: major depressive disorder Major depression recurrence: recurrent Active/Remission status: remission status unspecified Qualified Code(s): F33.9 - Major depressive disorder, recurrent, unspecified
--- NOTE | 2019-07-16 11:50 | PN ---
Subjective - Date and Time Seen Date: 07/16/19 Time: 11:46 Subjective Narrative: Patient states she feels she is getting along well. Feels like getting stronger. Pain controlled. No complaints at this time. Objective Objective Narrative: In bed. Comfortable. Alert and oriented. N/V intact LLE. Bandages intact. BS continues to improve on BMP. HgB stable. Normal WBC. Afebrile - Vitals Vitals: Last Vital Signs Temp 35.9 C L 07/16/19 06:56 Pulse 90 07/16/19 10:05 Resp 20 07/16/19 06:56 BP 155/77 H 07/16/19 08:52 Pulse Ox 92 L 07/16/19 06:56 - Abnormal Lab Findings Abnormal Lab Findings: Abnormal Lab Results 07/16/19 07/16/19 Range/Units 05:00 05:00 RBC 3.50 L (4.2-5.4) M/mm3 Hgb 9.3 L (12.5-16.0) gm/dL Hct 29.5 L (37.0-47.0) % MCH 26.6 L (27-31) pg MCHC 31.5 L (32-36) g/dl RDW 14.9 H (11.5-14.0) % Immature Gran % (Auto) 0.60 H (0.001-0.429) % Immature Gran # (Auto) 0.05 H (0.000-0.0310) K/mm3 Carbon Dioxide 36.7 H (24-32.6) mmol/L BUN/Creatinine Ratio 25.0 H (9.0-21.6) Random Glucose 195 H (70-110) mg/dL Albumin 2.4 L (3.4-5.0) gm/dl - Exam Constitutional: Present: Alert, Cooperative, No distress Cauti Physician Documentation - Urinary Catheter Management 2-way Urethral Urethral Indwelling: Yes Date of Insertion: 07/10/19 Time of Insertion: 14:05 Assessment/Plan - Problems/Diagnosis (1) Acute blood loss anemia Problem: Acute (2) Fall Problem: Acute (3) Diabetes mellitus Problem: Chronic Qualifiers: Diabetes mellitus type: type 2 Diabetes mellitus penitentiary insulin use: without terminal make up operator use Diabetes mellitus complication status: without complication Qualified Code(s): E11.9 - Type 2 diabetes mellitus without complications (4) Closed intertrochanteric fracture of left femur Problem: Acute Qualifiers: Encounter type: initial encounter Fracture alignment: displaced Qualified Code(s): S72.142A - Displaced intertrochanteric fracture of left femur, initial encounter for closed fracture (5) Hypertension Problem: Chronic Qualifiers: Hypertension type: essential hypertension Qualified Code(s): I10 - Essential (primary) hypertension (6) Hyperlipidemia Problem: Chronic Qualifiers: Hyperlipidemia type: mixed hyperlipidemia Qualified Code(s): E78.2 - Mixed hyperlipidemia (7) Hip fracture Problem: Acute Narrative: PT, anticoagulation, Pain control, looking into skilled center-should know tomorrow
[2019-07-16] MEDS: CHLORTHALIDONE 25 MG TABLET PO SCH (13:48)
[2019-07-16] MEDS: CYCLOBENZAPRINE HCL 10 MG TABLET PO PRN (17:05)
[2019-07-16] MEDS: ROSUVASTATIN CALCIUM 10 MG TABLET PO SCH (21:15)
[2019-07-16] MEDS: SENNOSIDES/DOCUSATE SODIUM 1 TAB TABLET PO SCH (21:19)
[2019-07-17] MEDS: PANTOPRAZOLE SODIUM 20 MG TABLET.DR PO SCH (07:23)
[2019-07-17] MEDS: LEVOTHYROXINE SODIUM 50 MCG TABLET PO SCH (07:23)
[2019-07-17] MEDS: INSULIN LISPRO 100 UNITS/ML VIAL SC SCH ×3 (07:23→17:14)
[2019-07-17] MEDS: HYDROcodone/ACETAMINOPHEN 1 EACH TABLET PO PRN ×3 (07:28→19:41)
[2019-07-17] MEDS: MULTIVITAMINS 1 CAP CAPSULE PO SCH (09:22)
[2019-07-17] MEDS: APIXABAN 2.5 MG TABLET PO SCH (09:22)
[2019-07-17] MEDS: CHLORTHALIDONE 25 MG TABLET PO SCH (09:22)
[2019-07-17] MEDS: SERTRALINE HCL 100 MG TABLET PO SCH (09:23)
[2019-07-17] MEDS: [UNRECOGNIZED DRUG - OTHER] PO SCH (09:23)
[2019-07-17] MEDS: amLODIPine BESYLATE 10 MG TABLET PO SCH (09:23)
[2019-07-17] MEDS: LISINOPRIL 40 MG TABLET PO SCH (09:23)
[2019-07-17] MEDS: CALCIUM CARBONATE/VITAMIN D3 1 TAB TABLET PO SCH (09:23)
[2019-07-17] MEDS: INSULIN GLARGINE,HUM.REC.ANLOG 100 UNITS/ML VIAL SC SCH (09:23)
[2019-07-17] MEDS: ACETAMINOPHEN 500 MG TABLET PO PRN (11:43)
--- NOTE | 2019-07-17 13:21 | PN ---
Subjective - Date and Time Seen Date: 07/17/19 Time: 13:14 Subjective Narrative: No acute events overnight. Pain well controlled Objective - Review of Systems Generalized/Overall Review: Denies: Weakness Respiratory: Denies: Shortness of Breath Cardiac: Denies: Chest Pain Abdominal: Denies: Abdominal Pain Genitourinary Symptoms: Denies: Burning, Itching Musculoskeletal Complaints: Denies: Joint Pain, Joint Swelling Neurological: Denies: Pre-existing Deficit Skin: Denies: Dryness - Vitals Vitals: Last Vital Signs Temp 36.5 C 07/17/19 10:00 Pulse 93 07/17/19 10:00 Resp 20 07/17/19 10:00 BP 122/78 07/17/19 10:00 Pulse Ox 99 07/17/19 10:00 - Exam Constitutional: Present: Alert, Oriented x3, Cooperative, Well developed ENT Exam: Present: hearing grossly normal Neck: Present: non-tender, full range of motion Respiratory: Present: chest non-tender, lungs clear, normal breath sounds, no respiratory distress, no accessory muscle use Cardiovascular/Chest: Present: normal peripheral pulses, regular rate, rhythm, no chest tenderness, no edema, no gallop, no JVD, no murmur Abdomen: Present: Normal bowel sounds, soft, nontender, nondistended Extremity: Present: normal range of motion, non-tender, normal inspection, no pedal edema, no calf tenderness, normal capillary refill Skin Exam: Present: normal color Neurologic: Present: alert, oriented x 3 Appearance: Present: appropriate appearance Eye contact: Present: cooperative Cauti Physician Documentation - Urinary Catheter Management 2-way Urethral Urethral Indwelling: Yes Date of Insertion: 07/10/19 Time of Insertion: 14:05 Date of Removal: 07/10/19 Time of Removal: 16:00 Assessment/Plan Plan Narrative: Assessment/Plan Plan Narrative: 63 year old Female s/p left hip repair POD#6 S/P Left hip repair POD #6 * Pain well controlled * Continue PT Diabetes * Better controlled * Continue aspart to 10 units TID with meals along with HDSS * Continue on lantus 10 units BIS Hypertension * well controlled * Continue Lisinopril and Chlorthalidone * FEN: Consistent Carbs and KRZYSZTOF Diet DVT PPX: Eliquis CODE STATUS: FULL CODE Disposition: - Awaiting placement - Tight glycemic control - Monitor Blood Pressure - Problems/Diagnosis (1) Closed left hip fracture Problem: Acute Qualifiers: Encounter type: initial encounter Qualified Code(s): S72.002A - Fracture of unspecified part of neck of left femur, initial encounter for closed fracture (2) Leukocytosis Problem: Acute Qualifiers: Leukocytosis type: leukemoid reaction Qualified Code(s): D72.823 - Leukemoid reaction (3) Muscle spasm Problem: Acute (4) Diabetes mellitus Problem: Chronic Qualifiers: Diabetes mellitus type: type 2 Diabetes mellitus intermission coordinator insulin use: without custodial use Diabetes mellitus complication status: without complication Qualified Code(s): E11.9 - Type 2 diabetes mellitus without complications (5) Hypertension Problem: Chronic Qualifiers: Hypertension type: essential hypertension Qualified Code(s): I10 - Essential (primary) hypertension (6) Hyperlipidemia Problem: Chronic Qualifiers: Hyperlipidemia type: mixed hyperlipidemia Qualified Code(s): E78.2 - Mixed hyperlipidemia (7) Depression Problem: Chronic Qualifiers: Depression Type: major depressive disorder Major depression recurrence: recurrent Active/Remission status: remission status unspecified Qualified Code(s): F33.9 - Major depressive disorder, recurrent, unspecified (8) Anxiety disorder Problem: Chronic Qualifiers: Anxiety disorder type: generalized anxiety disorder Qualified Code(s): F41.1 - Generalized anxiety disorder
[2019-07-17 14:15] LABS: Hematocrit 31.6 % (37.0-47.0); Hemoglobin 9.8 gm/dL (12.5-16.0); Mean Cell Volume 84.3 fl (78-100); Mean Corpuscular Hemoglobin 26.1 pg (27-31); Mean Platelet Volume 9.6 fl (8-12.5); Neutrophil # 7.6 K/mm3 (1.3-6.0); Neutrophil % 67.1 % (42-75.0); Platelet Count 345 K/mm3 (150-450); Red Blood Count 3.75 M/mm3 (4.2-5.4); Red Cell Distribution Width 15.3 % (11.5-14.0); White Blood Count 11.3 K/mm3 (4.0-10.5)
[2019-07-17 14:29] LABS: Albumin * 2.9 gm/dl (3.4-5.0); Anion Gap 14.4 mmol/L (6.8-13.8); BUN/Creatinine Ratio 16.7 (9.0-21.6); Bilirubin, Total 0.6 mg/dL (0.0-1.1); Ca. Corrected For Albumin 9.7 mg/dL (8.4-10.2); Calcium * 9.1 mg/dL (7.9-10.9); Carbon Dioxide 27.2 mmol/L (24-32.6); Potassium 3.6 mmol/L (3.4-4.6); Total Protein 7.2 gm/dL (6.2-8.2)
--- NOTE | 2019-07-17 16:13 | DS ---
(1) Closed left hip fracture Problem: Acute Qualifiers: Encounter type: initial encounter Qualified Code(s): S72.002A - Fracture of unspecified part of neck of left femur, initial encounter for closed fracture (2) Leukocytosis Problem: Acute Qualifiers: Leukocytosis type: leukemoid reaction Qualified Code(s): D72.823 - Leukemoid reaction (3) Muscle spasm Problem: Acute (4) Diabetes mellitus Problem: Chronic Qualifiers: Diabetes mellitus type: type 2 Diabetes mellitus watermelon harvesting supervisor insulin use: without penitentiary use Diabetes mellitus complication status: without complication Qualified Code(s): E11.9 - Type 2 diabetes mellitus without complications (5) Hypertension Problem: Chronic Qualifiers: Hypertension type: essential hypertension Qualified Code(s): I10 - Essential (primary) hypertension (6) Hyperlipidemia Problem: Chronic Qualifiers: Hyperlipidemia type: mixed hyperlipidemia Qualified Code(s): E78.2 - Mixed hyperlipidemia (7) Depression Problem: Chronic Qualifiers: Depression Type: major depressive disorder Major depression recurrence: recurrent Active/Remission status: remission status unspecified Qualified Code(s): F33.9 - Major depressive disorder, recurrent, unspecified (8) Anxiety disorder Problem: Chronic Qualifiers: Anxiety disorder type: generalized anxiety disorder Qualified Code(s): F41.1 - Generalized anxiety disorder Date of Discharge:: 07/17/19 Hospital Course: 63 year old F admitted due to left hip- fracture. Dr. Mccord Consulted and patient is s/p left arthroplasty POD #6. Did well after surgery, tolerated PT well. Had difficulty control blood sugars, A1C obtained was 13.1. Started on glargine 10 units BID, lispro 10 units TID with meals. Better controlled and counselled on proper diet watching blood sugars at home and to follow up with Dr. Betty Gentile. BP pressure poorly controlled initially and started on Chlorthalidone and Lisinopril, now better controlled. Follow up: Dr Gentile PCP New Medications: glargine 10 units TID lispro 10 units TID Chlorthalidone 25 mg PO QD Lisinopril 40 mg PO QAM Cris Gonzalez is confined to the home due to left hip arthroplasty. The need fo group home is medication management and education, and the need for physical therapy is for strengthening, endurance and gait stability. The need for occupational therapy is for assistance with bathing and ADLs. The need for home health care skilled services is directly related to the time spent face-to- face with the person. Procedures Performed: see notes below List Procedures: LEFT HIP ATHROPLASTY Care Plan Goals: Diabetes education Plan of Treatment: better glucose control with insulin as listed in HPI Health Concerns: Poorly controlled Diabetes and HTN Results and Findings: Lab Pending Results 07/10/19 13:45: Troponin I Less than 0.017 07/10/19 13:49: WBC 15.9 H, RBC 5.43 H, Hgb 14.2, Hct 44.2, MCV 81.4, MCH 26.2 L, MCHC 32.1, RDW 14.1 H, Plt Count 264, MPV 10.2, Immature Gran % (Auto) 0.60 H, Immature Gran # (Auto) 0.10 H, Neutrophils % 87.1 H, Lymphocytes % 7.9 L, Monocytes % 4.0, Eosinophils % 0.1, Basophils % 0.3, Nucleated RBC % 0.0, Neutrophils # 13.8 H, Lymphocytes # 1.26 L, Monocytes # 0.6, Eosinophils # 0.0, Absolute Basophils 0.0 07/10/19 13:49: Sodium 135, Plasma Sodium 140, Potassium 3.6, Chloride 97, Carbon Dioxide 29.3, Anion Gap 12.3, BUN 10, Creatinine 0.69, Est GFR (Non-Af Amer) 91, BUN/Creatinine Ratio 14.5, Random Glucose 413 H, Calcium 9.1, Calcium Adj for Albumin 8.9, Total Bilirubin 0.4, AST 43, ALT 58, Alkaline Phosphatase 109, Total Protein 7.9, Albumin 3.8 07/10/19 14:05: Urine Color Pale yellow, Urine Appearance Clear, Urine pH 5.5, Ur Specific [place] <=1.005, Urine Protein Negative, Urine Glucose (UA) >=1000 H, Urine Ketones 5, Urine Blood Negative, Urine Nitrate Negative, Urine Bilirubin Negative, Urine Urobilinogen Normal, Ur Leukocyte Esterase Negative, Urine RBC None seen, Urine WBC 0-5, Ur Epithelial Cells 0-5, Urine Bacteria 1+ H, Urine Culture Comments No culture indicated 07/11/19 05:15: WBC 11.1 H D, RBC 4.54, Hgb 12.0 L, Hct 37.3, MCV 82.2, MCH 26.4 L, MCHC 32.2, RDW 14.6 H, Plt Count 213, MPV 10.1, Immature Gran % (Auto) 0.50 H, Immature Gran # (Auto) 0.05 H, Neutrophils % 77.1 H, Lymphocytes % 15.3 L, Monocytes % 6.8, Eosinophils % 0.1, Basophils % 0.2, Nucleated RBC % 0.0, Neutrophils # 8.6 H, Lymphocytes # 1.70, Monocytes # 0.8, Eosinophils # 0.0, Absolute Basophils 0.0 07/11/19 05:15: Sodium 135, Plasma Sodium 138, Potassium 3.8, Chloride 99, Carbon Dioxide 31.0, Anion Gap 8.8, BUN 10, Creatinine 0.57, Est GFR (Non-Af Amer) 113 D, BUN/Creatinine Ratio 17.5, Random Glucose 290 H, Calcium 8.8, Calcium Adj for Albumin 9.0, Total Bilirubin 0.4, AST 27, ALT 45, Alkaline Phosphatase 93, Total Protein 6.9, Albumin 3.3 L 07/11/19 05:15: Blood Type A Positive, Antibody Screen Negative 07/12/19 06:33: WBC 11.1 H, RBC 4.06 L, Hgb 10.7 L, Hct 33.7 L, MCV 83.0, MCH 26.4 L, MCHC 31.8 L, RDW 14.4 H, Plt Count 200, MPV 9.9, Immature Gran % (Auto) 0.60 H, Immature Gran # (Auto) 0.07 H, Neutrophils % 76.8 H, Lymphocytes % 14.9 L, Monocytes % 7.2, Eosinophils % 0.3, Basophils % 0.2, Nucleated RBC % 0.0, Neutrophils # 8.5 H, Lymphocytes # 1.65, Monocytes # 0.8, Eosinophils # 0.0, Absolute Basophils 0.0 07/12/19 06:33: Sodium 134, Plasma Sodium 137, Potassium 3.6, Chloride 95 L, Carbon Dioxide 33.6 H, Anion Gap 9.0, BUN 6, Creatinine 0.55, Est GFR (Non-Af Amer) 118, BUN/Creatinine Ratio 10.9, Random Glucose 286 H, Calcium 8.9 07/13/19 06:50: WBC 10.1, RBC 3.88 L, Hgb 10.3 L, Hct 31.8 L, MCV 82.0, MCH 26.5 L, MCHC 32.4, RDW 14.3 H, Plt Count 210, MPV 9.9, Immature Gran % (Auto) 0.50 H, Immature Gran # (Auto) 0.05 H, Neutrophils % 74.5, Lymphocytes % 17.2 L, Monocytes % 7.2, Eosinophils % 0.3, Basophils % 0.3, Nucleated RBC % 0.0, Neutrophils # 7.5 H, Lymphocytes # 1.74, Monocytes # 0.7, Eosinophils # 0.0, Absolute Basophils 0.0 07/13/19 06:50: Sodium 136, Plasma Sodium 138, Potassium 3.4, Chloride 94 L, Carbon Dioxide 36.3 H, Anion Gap 9.1, BUN 7, Creatinine 0.52, Est GFR (Non-Af Amer) 126, BUN/Creatinine Ratio 13.5, Random Glucose 244 H, Calcium 9.0, Calcium Adj for Albumin 9.5, Total Bilirubin 0.5, AST 21, ALT 29, Alkaline Phosphatase 90, Total Protein 7.4, Albumin 3.0 L 07/14/19 06:41: WBC 8.6, RBC 3.65 L, Hgb 9.7 L, Hct 30.2 L, MCV 82.7, MCH 26.6 L, MCHC 32.1, RDW 14.2 H, Plt Count 228, MPV 10.2, Immature Gran % (Auto) 0.70 H, Immature Gran # (Auto) 0.06 H, Neutrophils % 73.1, Lymphocytes % 17.9 L, Monocytes % 7.3, Eosinophils % 0.7, Basophils % 0.3, Nucleated RBC % 0.0, Neutrophils # 6.3 H, Lymphocytes # 1.54, Monocytes # 0.6, Eosinophils # 0.1, Absolute Basophils 0.0 07/14/19 06:41: Sodium 136, Plasma Sodium 139, Potassium 3.4, Chloride 95 L, Carbon Dioxide 36.7 H, Anion Gap 7.7, BUN 10, Creatinine 0.54, Est GFR (Non-Af Amer) 121, BUN/Creatinine Ratio 18.5, Random Glucose 262 H, Calcium 8.9, Calcium Adj for Albumin 9.5, Total Bilirubin 0.4, AST 24, ALT 27, Alkaline Phosphatase 88, Total Protein 7.0, Albumin 2.8 L 07/14/19 06:41: Mean Blood Glucose 354, Hemoglobin A1c 13.2 H 07/15/19 05:15: WBC 8.7, RBC 3.52 L, Hgb 9.5 L, Hct 29.3 L, MCV 83.2, MCH 27.0, MCHC 32.4, RDW 14.4 H, Plt Count 239, MPV 9.7, Immature Gran % (Auto) 0.60 H, Immature Gran # (Auto) 0.05 H, Neutrophils % 68.0, Lymphocytes % 23.1, Monocytes % 7.5, Eosinophils % 0.5, Basophils % 0.3, Nucleated RBC % 0.0, Neutrophils # 5.9, Lymphocytes # 2.01, Monocytes # 0.7, Eosinophils # 0.0, Absolute Basophils 0.0 07/15/19 05:15: Sodium 137, Plasma Sodium 139, Potassium 3.5, Chloride 97, Carbon Dioxide 36.8 H, Anion Gap 6.7 L, BUN 11, Creatinine 0.51, Est GFR (Non-Af Amer) 129, BUN/Creatinine Ratio 21.6, Random Glucose 220 H, Calcium 8.7, Calcium Adj for Albumin 9.5, Total Bilirubin 0.4, AST 25, ALT 26, Alkaline Phosphatase 83, Total Protein 6.7, Albumin 2.6 L 07/16/19 05:00: WBC 8.1, RBC 3.50 L, Hgb 9.3 L, Hct 29.5 L, MCV 84.3, MCH 26.6 L, MCHC 31.5 L, RDW 14.9 H, Plt Count 288, MPV 9.4, Immature Gran % (Auto) 0.60 H, Immature Gran # (Auto) 0.05 H, Neutrophils % 65.7, Lymphocytes % 25.5, Monocytes % 6.9, Eosinophils % 0.9, Basophils % 0.4, Nucleated RBC % 0.0, Neutrophils # 5.3, Lymphocytes # 2.06, Monocytes # 0.6, Eosinophils # 0.1, Absolute Basophils 0.0 07/16/19 05:00: Sodium 139, Plasma Sodium 141, Potassium 3.5, Chloride 98, Carbon Dioxide 36.7 H, Anion Gap 7.8, BUN 13, Creatinine 0.52, Est GFR (Non-Af Amer) 126, BUN/Creatinine Ratio 25.0 H, Random Glucose 195 H, Calcium 8.7, Calcium Adj for Albumin 9.7, Total Bilirubin 0.6, AST 23, ALT 24, Alkaline Phosphatase 74, Total Protein 6.4, Albumin 2.4 L 07/17/19 14:06: WBC 11.3 H D, RBC 3.75 L, Hgb 9.8 L, Hct 31.6 L, MCV 84.3, MCH 26.1 L, MCHC 31.0 L, RDW 15.3 H, Plt Count 345, MPV 9.6, Immature Gran % (Auto) 0.70 H, Immature Gran # (Auto) 0.08 H, Neutrophils % 67.1, Lymphocytes % 23.9, Monocytes % 7.2, Eosinophils % 0.7, Basophils % 0.4, Nucleated RBC % 0.0, Neutrophils # 7.6 H, Lymphocytes # 2.69, Monocytes # 0.8, Eosinophils # 0.1, Absolute Basophils 0.0 07/17/19 14:06: Sodium 134, Plasma Sodium 135, Potassium 3.6, Chloride 96 L, Carbon Dioxide 27.2, Anion Gap 14.4 H, BUN 10, Creatinine 0.60, Est GFR (Non-Af Amer) 107, BUN/Creatinine Ratio 16.7, Random Glucose 191 H, Calcium 9.1, Calcium Adj for Albumin 9.7, Total Bilirubin 0.6, AST 25, ALT 30, Alkaline Phosphatase 90, Total Protein 7.2, Albumin 2.9 L Discharge Location: Home Disposition: Home Health Service [facility] Agency: [facility] Condition: Fair Face to Face Encounter completed per CMS Guidelines: Yes Discharge Activity: Activity as tolerated Discharge Diet: Consistent carbs, Low salt Referrals: Betty Gentile MD [Primary Care Provider] - One Week Additional Patient Instructions (free text): [facility] new- nursing and therapy at discharge- fax demographics, H&P, discharge summary and call report to [phone]. Follow up Orthopedic Dr Mccord's office appointment on WednesdayJul.25, at 10:00AM. Production Wood Craftsman recommends orders for insulin pens only not vials with syringes Complete Home Medications List: Complete Home Medication List: Calcium Carb/Vitamin D3/Vit K1 [Calcium + D Soft Chewable Tab] 1 tab PO DAILY 03/26/14 Multivitamins [Multivitamin Dat] 1 cap PO DAILY 03/26/14 sertraline 100 mg tablet 100 mg PO DAILY #30 tab 01/25/19 Lactobacillus Combination No.4 [Probiotic] 1 ea PO DAILY 07/10/19 Melatonin/Pyridoxine HCl (B6) [Melatonin 5 mg Tablet] 1 ea PO HS PRN 07/10/19 Vinegar Gummy 1 tab PO DAILY 07/10/19 Acetaminophen [Tylenol] 1,000 mg PO Q6H PRN tab 07/17/19 Chlorthalidone [Hygroton] 25 mg PO DAILY #30 tab 07/17/19 Cyclobenzaprine HCl [Flexeril] 10 mg PO TID PRN tab 07/17/19 Insulin Glargine,Hum.rec.anlog [Lantus] 10 units SC BID #2 vial 07/17/19 Insulin Lispro [Humalog] 10 units SC TID #2 vial 07/17/19 Levothyroxine Sodium [Synthroid] 50 mcg PO DAILY@0700 tab 07/17/19 Lisinopril [Zestril] 40 mg PO QAM #30 tab 07/17/19 Zolpidem Tartrate [Ambien] 5 mg PO HS PRN tab 07/17/19 amLODIPine BESYLATE [Norvasc] 10 mg PO DAILY tab 07/17/19 atorvastatin 20 mg tablet 20 mg PO DAILY #90 tab 07/17/19 levothyroxine 50 mcg tablet See Rx Instructions .ROUTE .COMPLEX #90 tab 07/17/19 omeprazole 20 mg capsule,delayed release 20 mg PO DAILY #90 cap 07/17/19
[2019-07-17] MEDS ORDERED: HYDROcodone/ACETAMINOPHEN 1 EACH TABLET PO PRN (16:20)
[2019-07-17 19:07] VITALS: BP 148/63
[2019-07-17] MEDS ORDERED: APIXABAN 2.5 MG TABLET PO SCH (21:00)
== END 2019-07-17 19:45 | disposition home health service (06) | DRG 481 ==
LOC: ER 12:26 → MS 14:06
PROVIDERS: ADMIT Family Medicine; ATTEND Family Medicine
DX: S72.142A Displaced intertrochanteric fracture of left femur, initial encounter for closed fracture; D62 Acute posthemorrhagic anemia; I10 Essential (primary) hypertension; E78.5 Hyperlipidemia, unspecified; M62.838 Other muscle spasm; E03.9 Hypothyroidism, unspecified; F33.9 Major depressive disorder, recurrent, unspecified; W01.0XXA Fall on same level from slipping, tripping and stumbling without subsequent striking against object, initial encounter; Z87.891 Personal history of nicotine dependence; S00.93XA Contusion of unspecified part of head, initial encounter; E11.9 Type 2 diabetes mellitus without complications; F41.1 Generalized anxiety disorder
CPT/HCPCS: 36415; 70450; 71010; 71045; 73502; 73552; 80048; 80053; 81001; 83036; 84484; 85025; 86850; 93005; 97110; 97116; 97162; 97165; 97530; 97535; 99285; J2405